=== PATIENT | female | born 1960 | race African-American/Black ===

== ENCOUNTER 2017-08-16 13:10 | Outpatient (CLI) | payer BC | END 2017-08-16 13:11 | disposition home or self-care (01) | LOC: BICMAMMO 13:10 | PROVIDERS: ATTEND Family Medicine | DX: Z12.31 Encounter for screening mammogram for malignant neoplasm of breast (principal); I10 Essential (primary) hypertension | CPT/HCPCS: 77063; 77067 ==

== ENCOUNTER 2018-10-06 20:08 | Inpatient (IN) | payer BC ==
[2018-10-06] MEDS ORDERED: Morphine 4 MG/ML VIAL ONE ×2 (20:22→21:54)
[2018-10-06 21:02] LABS: Lactic Acid 0.9 mmol/L (0.5-2.2)
[2018-10-06] MEDS: Sodium Chloride 0.9% 1,000 ML IV SCH (23:20)
--- NOTE | 2018-10-07 00:20 | HP ---
CHIEF COMPLAINT: Abdominal pain. HISTORY OF PRESENT ILLNESS: This patient is a 57-year-old female who woke up this morning in her usual state of generally good health. She ate breakfast, subsequently had some pelvic and lower abdominal pain, which felt like a cramping and felt like she needed to have bowel movement. She attempted to have a bowel movement, but was unable to do so and the pain became more severe. She denies any fever, but presented to the emergency department in [place]. There, she had a CT scan of the abdomen and pelvis, which revealed evidence of free air in the abdomen and pelvis and some stranding around the sigmoid, consistent with ruptured diverticulum. The patient was subsequently transferred to this facility. She had a temperature of over 102 en route. Currently, the patient is still having some discomfort, but is generally controlled with morphine. REVIEW OF SYSTEMS: All systems reviewed, all pertinent positives and negatives noted in the history of present illness. PAST MEDICAL HISTORY: Hypertension. SURGICAL HISTORY: Hysterectomy. FAMILY HISTORY: Reviewed with the patient and negative. SOCIAL HISTORY: Patient occasionally smokes, but not daily. Occasionally drinks socially, but not regularly. She is a since June. She is full code and her mother is her surrogate decision maker. ALLERGIES: NONE. CURRENT MEDICATIONS: 1. Atenolol 25 mg daily. 2. Hydrochlorothiazide 25 mg daily. PHYSICAL EXAMINATION: VITAL SIGNS: BP 158/80, pulse 87, respirations 16, O2 saturation 98% on room air, temperature is 99.9. GENERAL APPEARANCE: Age-appropriate female, obese, no distress. She is slightly somnolent from the medications, but able to converse appropriately. Her sister is present with her and helps her get some of the history. HEENT: PERRL, no OP lesions. NECK: Supple and symmetric. HEART: Regular rate and rhythm without murmurs, gallops, or rubs. LUNGS: Clear to auscultation bilaterally with good chest wall expansion and air exchange. ABDOMEN: Soft, nondistended. There is bowel sounds in all four quadrants. It is tender to palpation in the left lower abdomen and pelvic area without significant guarding or rebound. EXTREMITIES: No cyanosis, clubbing, or edema. SKIN: Warm and dry. NEUROLOGIC: The patient is fully intact with no focal deficits. PSYCHIATRIC: Normal affect and behavior. LABORATORY DATA: Lactic acid level here is 0. The labs per the [place] ER report reviewed. CT abdomen and pelvis as noted above with free air in the abdomen and pelvis with stranding around the sigmoid colon consistent with a ruptured diverticulum. IMPRESSION AND PLAN: 1. Ruptured diverticulum with abdominal pain and fever. The ER physician discussed the case with surgery who feels like the patient is stable for surgery in the morning. We will cover her with Zosyn, give her pain medications and IV fluids. Keep her n.p.o. 2. Hypertension. We will resume the patient's usual home medications when she is able to take p.o. adequately. 3. We will give peptic ulcer disease and deep venous thrombosis prophylaxis. Job ID: [id number]
[2018-10-07 01:50] VITALS: BMI 36.4
[2018-10-07] MEDS: Morphine 2 MG/ML SYRINGE SLOW IVP PRN ×2 (02:18→06:59)
[2018-10-07 05:08] LABS: Band 5 % (5-11); Eosinophils 2 % (0-10); Hemoglobin 12.7 g/dL (12.0-16.0); Lymphocytes 22 % (21-51); MDiff Complete? YES; Mean Corpuscular HGB CONC 34.2 g/dL (32.0-36.0); Mean Corpuscular Volume 96.6 fL (78.0-98.0); Mean Platelet Volume 8.9 fL (7.4-10.4); Monocytes 6 % (0-10); Neutrophil 65 % (42-75); Platelet Count 141 thou/uL (130-400); Platelet Morphology Comment Appears Adequate; RBC Distribution Width 11.7 % (11.5-14.5); Red Blood Cell (RBC) Count 3.85 mill/uL (4.20-5.40); White Blood Cell (WBC) Count 13.8 thou/uL (4.8-10.8)
[2018-10-07 05:34] LABS: Anion Gap 12 mmol/L (10-20); BUN (Urea Nitrogen) 8 mg/dL (9.8-20.1); Calc. Creatinine Clearance 162 mL/min (70-130); Calcium 8.6 mg/dL (7.8-10.44); Carbon Dioxide 19 mmol/L (22-29); Chloride 111 mmol/L (98-107); Estimated GFR-MDRD Greater than 90; Glucose 97 mg/dL (70-105); Sodium 138 mmol/L (136-145)
[2018-10-07] MEDS: Piperacillin/Tazobactam 3.375 GM in Sodium Chloride 0.9% 100 ML IVPB SCH ×4 (06:00→17:49)
[2018-10-07] MEDS ORDERED: Eucerin (Mineral Oil/Petrolatum,White) 30 gm Jar TOP PRN (08:32)
[2018-10-07] MEDS ORDERED: Acetaminophen 650 MG Suppository PR PRN (08:32)
[2018-10-07] MEDS ORDERED: Sodium Chloride 0.65% Nasal 44 ML BOT EA NARE PRN (08:32)
[2018-10-07] MEDS ORDERED: Artificial Tears 18 DROP/0.9 ML EA EYE PRN (08:32)
[2018-10-07] MEDS ORDERED: Cepastat Lozenges 1 LOZ PO PRN (08:32)
[2018-10-07] MEDS ORDERED: hydrALAZINE 20 MG/ML VIAL SLOW IVP PRN (08:32)
[2018-10-07] MEDS ORDERED: Ondansetron PF 4 MG/2 ML Vial IVP PRN ×2 (08:32→14:10)
[2018-10-07] MEDS ORDERED: Metoclopramide HCl 10 MG/2 ML VIAL IVP PRN (08:32)
[2018-10-07] MEDS ORDERED: Atenolol 25 MG TAB PO SCH (09:00)
[2018-10-07] MEDS ORDERED: Famotidine/PF 20 mg/2ml Vial SLOW IVP SCH (09:00)
--- NOTE | 2018-10-07 09:08 | PDOC.EVN ---
Event Note - Event Note Event Note: Patient seen and examined. She has diffuse peritoneal signs consistent with her perforated sigmoid diverticulitis and free diffuse intraperitoneal air. Plan surgery later today
--- NOTE | 2018-10-07 09:53 | CON ---
DATE OF CONSULTATION: 10/07/2018 CHIEF COMPLAINT: Abdominal pain. HISTORY OF PRESENT ILLNESS: This is a 57-year-old female, who presents with a history of ruptured sigmoid diverticulitis. She notes a few day history of severe diffuse abdominal pain, worse in the low abdomen, associated with fever and chills associated with nausea, no vomiting. She had normal colonoscopy 3 years ago. She denies any chronic heart disease, never had a heart attack or a stroke. Denies diabetes. Pain is described as 8/10 in the diffuse abdomen, makes it feel better by lying on her side and not moving. Nausea, but no vomiting since admission. She has been borderline, febrile since admission. I have been consulted for surgical management of this. PAST MEDICAL HISTORY: Includes hypertension. PAST SURGICAL HISTORY: Hysterectomy. MEDICATIONS: Atenolol, hydrochlorothiazide. ALLERGIES: NO KNOWN DRUG ALLERGIES. SOCIAL HISTORY: She occasionally smokes. Social alcohol. REVIEW OF SYSTEMS: Ten-system review of systems is otherwise negative unless described above. PHYSICAL EXAMINATION: VITAL SIGNS: Blood pressure 179/77, pulse 86, respirations 16, and temperature 100.3. HEENT: Sclerae anicteric. Oropharynx clear. NECK: No lymphadenopathy. CHEST: Clear. HEART: Regular rate and rhythm. ABDOMEN: Soft, diffusely tender with diffuse peritoneal signs and rebound. No abdominal or inguinal hernias. EXTREMITIES: No ischemia or edema to extremities. LABORATORY DATA: White blood cell count is 13, hemoglobin is 12, platelet count is 141. Creatinine 0.66. IMAGING STUDIES: CT scan shows ruptured sigmoid diverticulitis. ASSESSMENT: Ruptured sigmoid diverticulitis. PLAN: Laparotomy with sigmoid resection and colostomy. Risks, benefits, and alternatives were discussed. She gives consent. We will do this today. Job ID: [id number]
[2018-10-07] MEDS: Sodium Chloride 0.9% 1,000 ML IV SCH ×2 (09:55→15:17)
--- NOTE | 2018-10-07 10:38 | PDOC.PN ---
- Subjective Encounter Start Date: 10/07/18 Encounter Start Time: 07:30 -: old records requested/rev Patient seen and examined. has abdominal pain. No overnight events - Objective Resuscitation Status - Order Detail: 10/06/18 22:04 Resuscitation Status Routine Resuscitation Status: FULL: Full Resuscitation MAR Reviewed: Yes Vital Signs & Weight: Vital Signs (12 hours) Temp Pulse Resp BP Pulse Ox 10/07/18 07:38 100.3 F H 86 16 179/77 H 94 L 10/07/18 04:00 98.9 F 77 16 147/87 H 98 10/07/18 00:00 99.0 F 76 16 156/90 H 98 Weight Weight 246 lb 14.684 oz Result Diagrams: 10/07/18 03:57 10/07/18 03:57 Radiology Reviewed by me: Yes EKG Reviewed by me: Yes Phys Exam - Physical Examination Constitutional: NAD HEENT: PERRLA, moist MMs, sclera anicteric Neck: no JVD, supple Respiratory: no wheezing, no rales, no rhonchi Cardiovascular: RRR, no significant murmur, no rub Gastrointestinal: soft, no distention, positive bowel sounds peritoneal sign+ Musculoskeletal: no edema, pulses present Neurological: non-focal, normal sensation, moves all 4 limbs Lymphatic: no nodes Psychiatric: normal affect, A&O x 3 Skin: no rash, normal turgor Dx/Plan (1) Diverticulitis of intestine with perforation Code(s): K57.80 - DVTRCLI OF INTEST, PART UNSP, W PERF AND ABSCESS W/O BLEED Status: Acute Qualifiers: Diverticulitis site: large intestine (2) Hypertension Code(s): I10 - ESSENTIAL (PRIMARY) HYPERTENSION Status: Chronic (3) Obesity (BMI 30.0-34.9) Code(s): E66.9 - OBESITY, UNSPECIFIED Status: Chronic - Plan cont current plan of care, plan discussed w/ family, continue antibiotics * general surgery on case, plan for surgery later today * continue IV antibiotics * continue IVF * medication reviewed as below * symptomatic treatment. * pain control Review of Systems - Review of Systems ENT: negative: Ear Pain, Ear Discharge, Nose Pain, Nose Discharge, Nose Congestion, Mouth Pain, Mouth Swelling, Throat Pain, Throat Swelling, Other Respiratory: negative: Cough, Dry, Shortness of Breath, Hemoptysis, SOB with Excertion, Pleuritic Pain, Sputum, Wheezing Cardiovascular: negative: chest pain, palpitations, orthopnea, paroxysmal nocturnal dyspnea, edema, light headedness, other Gastrointestinal: Abdominal Pain. negative: Nausea, Vomiting, Diarrhea, Constipation, Melena, Hematochezia, Other Genitourinary: negative: Dysuria, Frequency, Incontinence, Hematuria, Retention , Other Musculoskeletal: negative: Neck Pain, Shoulder Pain, Arm Pain, Back Pain, Hand Pain, Leg Pain, Foot Pain, Other Skin: negative: Rash, Lesions, Jabari, Bruising, Other - Medications/Allergies Allergies/Adverse Reactions: Allergies Allergy/AdvReac Type Severity Reaction Status Date / Time No Known Allergies Allergy Unverified 10/06/18 22:12 Medications: Current Medications Acetaminophen (Tylenol) 650 mg MD Q4H PRN PRN Reason: Fever > 101 Artificial Tears (Tears Naturale) 2 drop EA EYE PRN PRN PRN Reason: Dry Eyes Atenolol (Tenormin) 25 mg PO DAILY [facility] Last Admin: 10/07/18 09:55 Dose: 25 mg Famotidine (Pepcid) 20 mg SLOW IVP DAILY [facility] Last Admin: 10/07/18 09:55 Dose: 20 mg Hydralazine HCl (Apresoline) 10 mg SLOW IVP Q4H PRN PRN Reason: SBP > 180 and HR < 70 Piperacillin Sod/Tazobactam (Sod 3.375 gm/ Sodium Chloride) 100 mls @ 200 mls/ hr IVPB Q6HR [facility] Last Admin: 10/07/18 06:00 Dose: 100 mls Sodium Chloride (Normal Saline 0.9%) 1,000 mls @ 100 mls/hr IV .Q10H [facility] Last Admin: 10/07/18 09:55 Dose: 1,000 mls Metoclopramide HCl (Reglan) 5 mg IVP Q4H PRN PRN Reason: Nausea Mineral Oil/White Petrolatum (Eucerin Cream) 0 gm TOP BIDPRN PRN PRN Reason: Dry Skin Morphine Sulfate (Morphine) 2 mg SLOW IVP Q4H PRN PRN Reason: Moderate to Severe Pain (6-10) Last Admin: 10/07/18 06:59 Dose: 2 mg Ondansetron HCl (Zofran) 4 mg IVP Q6H PRN PRN Reason: Nausea/Vomiting Sodium Chloride (Flush - Normal Saline) 10 ml IVF Q12HR [facility] Last Admin: 10/07/18 09:53 Dose: Not Given Sodium Chloride (Flush - Normal Saline) 10 ml IVF PRN PRN PRN Reason: Saline Flush Last Admin: 10/06/18 23:20 Dose: 10 ml Sodium Chloride (Banner Nasal [place] 0.65%) 0 ml EA NARE QIDPRN PRN PRN Reason: Nasal Congestion Throat Lozenges (Cepastat Lozenges) 1 verna PO Q2H PRN PRN Reason: Sore Throat
[2018-10-07] MEDS ORDERED: Morphine 2 MG/ML SYRINGE ONE (11:22)
[2018-10-07] MEDS ORDERED: Succinylcholine Chloride 20 MG/ML 10 ml SYRINGE FS ONE (11:31)
[2018-10-07] MEDS ORDERED: Lidocaine 2% PF 5 ML VIAL ONE (11:31)
[2018-10-07] MEDS ORDERED: Dexamethasone 20 MG/5 ML VIAL ONE (11:31)
[2018-10-07] MEDS ORDERED: PROPOFOL 200 MG/20 ML VIAL ONE (11:31)
[2018-10-07] MEDS ORDERED: Ondansetron PF 4 MG/2 ML Vial ONE (11:31)
[2018-10-07] MEDS ORDERED: Glycopyrrolate 0.2 MG/ML 5 ML SYRINGE ONE (11:31)
[2018-10-07] MEDS ORDERED: PHENYLEPHRINE-NS 100 MCG/ML 10 ML SYRINGE ONE (11:31)
[2018-10-07] MEDS ORDERED: Rocuronium Bromide 10 MG/ML (10ML VIAL) ONE (11:31)
[2018-10-07] MEDS ORDERED: Fentanyl 100 MCG/2 ML VIAL ONE (11:34)
[2018-10-07] MEDS ORDERED: diphenhydrAMINE 50 MG/ML VIAL IM PRN (14:10)
[2018-10-07] MEDS ORDERED: fentaNYL Citrate/PF 2,000 MCG in Sodium Chloride 0.9% 60 ML IV PRN (14:10)
[2018-10-07] MEDS ORDERED: Ondansetron HCl/PF 4 MG/2 ML Vial IVP PRN (14:10)
[2018-10-07] MEDS ORDERED: Promethazine HCl 25 MG/ML VIAL SLOW IVP PRN (14:10)
[2018-10-07] MEDS ORDERED: Zolpidem Tartrate 5 MG TAB PO PRN (14:10)
[2018-10-07] MEDS ORDERED: diphenhydrAMINE 50 MG/ML VIAL IVP PRN (14:10)
[2018-10-07] MEDS ORDERED: Naloxone HCl 0.4 mg/ml Vial IV PRN (14:10)
[2018-10-07] MEDS ORDERED: diphenhydrAMINE 25 MG CAP PO PRN (14:10)
[2018-10-07] MEDS ORDERED: Promethazine HCl 25 MG/ML VIAL IM PRN ×2 (14:10)
[2018-10-07] MEDS ORDERED: Communication Order-Pharmacy FS SCH (14:15)
--- NOTE | 2018-10-07 17:24 | OP ---
DATE OF PROCEDURE: 10/07/2018 PREOPERATIVE DIAGNOSIS: Perforated sigmoid diverticulitis. POSTOPERATIVE DIAGNOSIS: Perforated sigmoid diverticulitis. PROCEDURES PERFORMED: Exploratory laparotomy, sigmoid colectomy with colostomy, and mobilization of splenic flexure. ANESTHESIA: General. ESTIMATED BLOOD LOSS: 50 mL. COMPLICATION: None. SPECIMEN: Sigmoid colon. DESCRIPTION OF PROCEDURE: The patient was taken to the operating room and laid supine on the operating room table. After general anesthetic was obtained, Hess was placed. The abdomen was prepped and draped in a sterile fashion. A midline incision was made into the abdomen without injury. Bookwalter retractor was placed. There was obvious purulent material in the pelvis. There was obvious perforation in the area of the sigmoid colon. The white line of Toldt was mobilized, but the left ureter was found excluded from the dissection. In the upper rectum, a small window was made just on the mesenteric surface of the colon and a contour stapler was fired across the rectosigmoid junction. The mesentery going proximally was taken using the Impact LigaSure. All the way up in the splenic flexure, it was mobilized in the usual fashion using cautery. Ellipse of skin taken out in the left abdomen. Cautery was dissected down through the subcutaneous tissues and a cruciate incision was made in the fascia. Two finger breaths were placed in the abdomen. The proximal colon was able to brought up through this muscle defect, this will be the location of the end colostomy. The Prolene was placed to the staple line below. Seprafilm was placed over the staple line below. The abdomen had been irrigated using sterile solution. All instrument counts, needle counts, and lap counts were correct. Midline fascia closed with #1 PDS from the top and bottom and tied in the middle. Subcutaneous tissues were irrigated copiously and the skin closed using skin clips. Telfa osvaldo were placed in between the christina. Sterile dressings were placed. The colostomy was then matured in the usual fashion using 3-0 Vicryl. Colostomy device was placed. The patient was then returned to Recovery in stable condition. All instrument counts, needle counts, and lap counts were correct. Job ID: [id number]
[2018-10-07] MEDS: Acetaminophen 1,000 MG in Premix Bag 1 BAG IVPB SCH (17:48)
[2018-10-07] MEDS: Enoxaparin Sodium 40 MG/0.4 ML SYRINGE SC SCH (21:02)
[2018-10-07] MEDS: Famotidine 20 MG TAB PO SCH (21:02)
[2018-10-07] MEDS: Famotidine/PF 20 mg/2ml Vial SLOW IVP SCH (21:02)
[2018-10-08] MEDS: Acetaminophen 1,000 MG in Premix Bag 1 BAG IVPB SCH ×3 (00:15→13:10)
[2018-10-08] MEDS: Piperacillin/Tazobactam 3.375 GM in Sodium Chloride 0.9% 100 ML IVPB SCH ×4 (00:48→19:51)
[2018-10-08] MEDS: Sodium Chloride 0.9% 1,000 ML IV SCH ×3 (02:44→13:14)
[2018-10-08 06:18] LABS: #Lymphocytes 1.6 thou/uL (1.20-3.40); #Monocytes 0.8 thou/uL (0.11-0.59); #Neutrophils 9.4 thou/uL (1.40-6.50); %Basophils 0.1 % (0.0-1.0); %Eosinophils 0.3 % (0.0-10.0); %Lymphocytes 13.3 % (21.0-51.0); %Monocytes 6.7 % (0.0-10.0); %Neutrophils 79.7 % (42.0-75.0); Mean Corpuscular HGB CONC 32.7 g/dL (32.0-36.0); Mean Corpuscular Hemoglobin 32.1 pg (27.0-31.0); Mean Corpuscular Volume 98.2 fL (78.0-98.0); Mean Platelet Volume 9.1 fL (7.4-10.4); Platelet Count 132 thou/uL (130-400); RBC Distribution Width 11.5 % (11.5-14.5); Red Blood Cell (RBC) Count 3.43 mill/uL (4.20-5.40); White Blood Cell (WBC) Count 11.8 thou/uL (4.8-10.8)
[2018-10-08 06:29] LABS: ALT (SGPT) 11 U/L (8-55); AST (SGOT) 18 U/L (5-34); Albumin 2.9 g/dL (3.5-5.0); Alkaline Phosphatase 45 U/L (40-150); Anion Gap 12 mmol/L (10-20); BUN (Urea Nitrogen) 8 mg/dL (9.8-20.1); Bilirubin, Total 0.6 mg/dL (0.2-1.2); Calc. Creatinine Clearance 151 mL/min (70-130); Calcium 8.4 mg/dL (7.8-10.44); Carbon Dioxide 20 mmol/L (22-29); Chloride 109 mmol/L (98-107); Estimated GFR-MDRD Greater than 90; Globulin 3.7 g/dL (2.4-3.5); Glucose 102 mg/dL (70-105); Magnesium 2.4 mg/dL (1.6-2.6); Phosphorus 2.4 mg/dL (2.3-4.7); Potassium 4.5 mmol/L (3.5-5.1); Protein, Total 6.6 g/dL (6.0-8.3); Sodium 136 mmol/L (136-145)
--- NOTE | 2018-10-08 08:34 | PDOC.GSPN ---
Surgery Progress Note: Subj - Subjective Narrative: Not ambulating yet. No nausea Surgery Progress Note: Obj - Vital signs Vital signs: Vital Signs - Most Recent Temp Pulse Resp BP Pulse Ox 98.6 F 58 L 16 166/87 H 93 L 10/08/18 08:00 10/08/18 08:00 10/08/18 08:00 10/08/18 08:00 10/08/18 08:00 - Physical Exam General: no distress Cardiovascular: regular rate and rhythm Respiratory: clear to auscultation Abdomen: soft, appropriately tender Wound: dressing clean,dry,intact, ostomy/colostomy (mucosa viable) Surgery Progress Note: Results - Labs Result Diagrams: 10/08/18 05:45 10/08/18 05:45 Lab results: Laboratory Results - last 24 hr 10/08/18 10/08/18 05:45 05:45 WBC 11.8 H RBC 3.43 L Hgb 11.0 L Hct 33.7 L MCV 98.2 H MCH 32.1 H MCHC 32.7 RDW 11.5 Plt Count 132 MPV 9.1 Neutrophils % 79.7 H Lymphocytes % 13.3 L Monocytes % 6.7 Eosinophils % 0.3 Basophils % 0.1 Neutrophils # 9.4 H Lymphocytes # 1.6 Monocytes # 0.8 H Eosinophils # 0.0 Basophils # 0.0 Sodium 136 Potassium 4.5 Chloride 109 H Carbon Dioxide 20 L Anion Gap 12 BUN 8 L Creatinine 0.71 Estimated GFR (MDRD) Greater than 90 Glucose 102 Calcium 8.4 Phosphorus 2.4 Magnesium 2.4 Total Bilirubin 0.6 AST 18 ALT 11 Alkaline Phosphatase 45 Serum Total Protein 6.6 Albumin 2.9 L Globulin 3.7 H Albumin/Globulin Ratio 0.8 L Surgery Progress Note: A/P - Problem (1) Diverticulitis of intestine with perforation Current Visit: Yes Code(s): K57.80 - DVTRCLI OF INTEST, PART UNSP, W PERF AND ABSCESS W/O BLEED Status: Acute Qualifiers: Diverticulitis site: large intestine - Plan Plan: POD 1 root procedure -needs to ambulate -stay on clears -osvaldo out of wound tomorrow
[2018-10-08] MEDS: Famotidine 20 MG TAB PO SCH ×2 (08:58→20:19)
[2018-10-08] MEDS: Famotidine/PF 20 mg/2ml Vial SLOW IVP SCH ×2 (08:59→20:13)
--- NOTE | 2018-10-08 13:41 | PDOC.PN ---
- Subjective Encounter Start Date: 10/08/18 Encounter Start Time: 09:45 -: old records requested/rev Patient seen and examined. No new complaints. No overnight events - Objective Resuscitation Status - Order Detail: 10/06/18 22:04 Resuscitation Status Routine Resuscitation Status: FULL: Full Resuscitation MAR Reviewed: Yes Vital Signs & Weight: Vital Signs (12 hours) Temp Pulse Resp BP Pulse Ox 10/08/18 11:52 98.5 F 59 L 18 169/95 H 93 L 10/08/18 08:00 98.6 F 58 L 16 166/87 H 93 L 10/08/18 04:00 98 F 66 18 149/80 H 94 L Weight Weight 246 lb 14.684 oz I&O: 10/07/18 10/08/18 10/09/18 06:59 06:59 06:59 Intake Total 800 Output Total 350 200 Balance 450 -200 Result Diagrams: 10/08/18 05:45 10/08/18 05:45 Additional Labs: Accuchecks 10/07/18 13:40 POC Glucose 121 H Phys Exam - Physical Examination Constitutional: NAD HEENT: PERRLA, moist MMs, sclera anicteric Neck: no JVD, supple Respiratory: no wheezing, no rales, no rhonchi Cardiovascular: RRR, no significant murmur, no rub Gastrointestinal: soft surgical site with dressing, colostomy+ Musculoskeletal: no edema, pulses present Neurological: non-focal, normal sensation Lymphatic: no nodes Psychiatric: normal affect, A&O x 3 Skin: no rash, normal turgor Dx/Plan (1) Diverticulitis of intestine with perforation Code(s): K57.80 - DVTRCLI OF INTEST, PART UNSP, W PERF AND ABSCESS W/O BLEED Status: Acute Qualifiers: Diverticulitis site: large intestine Comment: S/P LAPAROTOMY, SIGMOID COLON RESECTION, AND COLOSTOMY PLACEMENT (2) Hypertension Code(s): I10 - ESSENTIAL (PRIMARY) HYPERTENSION Status: Chronic (3) Obesity (BMI 30.0-34.9) Code(s): E66.9 - OBESITY, UNSPECIFIED Status: Chronic - Plan cont current plan of care, continue antibiotics * continue zosyn * reduce IVF * ambulate * post operative care as per surgeon * medication reviewed as below * symptomatic treatment. * clear liquid diet Review of Systems - Review of Systems ENT: negative: Ear Pain, Ear Discharge, Nose Pain, Nose Discharge, Nose Congestion, Mouth Pain, Mouth Swelling, Throat Pain, Throat Swelling, Other Respiratory: negative: Cough, Dry, Shortness of Breath, Hemoptysis, SOB with Excertion, Pleuritic Pain, Sputum, Wheezing Cardiovascular: negative: chest pain, palpitations, orthopnea, paroxysmal nocturnal dyspnea, edema, light headedness, other Gastrointestinal: negative: Nausea, Vomiting, Abdominal Pain, Diarrhea, Constipation, Melena, Hematochezia, Other Genitourinary: negative: Dysuria, Frequency, Incontinence, Hematuria, Retention , Other Musculoskeletal: negative: Neck Pain, Shoulder Pain, Arm Pain, Back Pain, Hand Pain, Leg Pain, Foot Pain, Other - Medications/Allergies Allergies/Adverse Reactions: Allergies Allergy/AdvReac Type Severity Reaction Status Date / Time No Known Allergies Allergy Unverified 10/06/18 22:12 Medications: Current Medications Albuterol/Ipratropium (Duoneb) 3 ml NEB Q4H PRN PRN Reason: Wheezing Diphenhydramine HCl (Benadryl) 25 mg IVP Q3H PRN PRN Reason: Itching Diphenhydramine HCl (Benadryl) 25 mg PO Q3H PRN PRN Reason: Itching Diphenhydramine HCl (Benadryl) 25 mg IM Q3H PRN PRN Reason: Itching Enoxaparin Sodium (Lovenox) 40 mg SC 2100 [facility] Last Admin: 10/07/18 21:02 Dose: 40 mg Famotidine (Pepcid) 20 mg PO Q12HR [facility] Last Admin: 10/08/18 08:58 Dose: Not Given Famotidine (Pepcid) 20 mg SLOW IVP Q12HR [facility] Last Admin: 10/08/18 08:59 Dose: 20 mg Hydralazine HCl (Apresoline) 10 mg SLOW IVP Q4H PRN PRN Reason: SBP > 170 or DBP > 100 Piperacillin Sod/Tazobactam (Sod 3.375 gm/ Sodium Chloride) 100 mls @ 200 mls/ hr IVPB Q6HR [facility] Last Admin: 10/08/18 13:10 Dose: 100 mls Fentanyl Citrate 2,000 mcg/ (Sodium Chloride) 100 mls @ 0 mls/hr IV INF PRN PRN Reason: Pain Sodium Chloride (Normal Saline 0.9%) 1,000 mls @ 70 mls/hr IV .[id number] [facility] Last Admin: 10/08/18 13:14 Dose: 1,000 mls Naloxone HCl (Narcan) 0.2 mg IV Q5MIN PRN PRN Reason: Opiate Reversal Ondansetron HCl (Zofran) 4 mg IVP Q6H PRN PRN Reason: Nausea/Vomiting Promethazine HCl (Phenergan) 12.5 mg IM Q4H PRN PRN Reason: Nausea/Vomiting Sodium Chloride (Flush - Normal Saline) 10 ml IVF PRN PRN PRN Reason: Saline Flush Last Admin: 10/07/18 21:04 Dose: 10 ml Throat Lozenges (Cepastat Lozenges) 1 verna PO Q2H PRN PRN Reason: Sore Throat Zolpidem Tartrate (Ambien) 5 mg PO HSPRN PRN PRN Reason: Insomnia
[2018-10-08] MEDS: Ondansetron PF 4 MG/2 ML Vial IVP PRN (19:51)
[2018-10-08] MEDS: Enoxaparin Sodium 40 MG/0.4 ML SYRINGE SC SCH (20:13)
[2018-10-09] MEDS: Piperacillin/Tazobactam 3.375 GM in Sodium Chloride 0.9% 100 ML IVPB SCH ×5 (00:27→23:33)
[2018-10-09] MEDS: hydrALAZINE 20 MG/ML VIAL SLOW IVP PRN ×4 (01:01→14:05)
[2018-10-09] MEDS: Ondansetron PF 4 MG/2 ML Vial IVP PRN ×2 (02:29→10:42)
[2018-10-09] MEDS: Promethazine HCl 25 MG/ML VIAL IM PRN ×2 (04:25→14:09)
[2018-10-09] MEDS: Sodium Chloride 0.9% 1,000 ML IV SCH ×2 (04:29→13:00)
[2018-10-09] MEDS ORDERED: Labetalol HCl 100 MG/20 ML VIAL SLOW IVP PRN (08:18)
[2018-10-09] MEDS ORDERED: Labetalol 5 MG/ML SYRINGE (IV ROOM) SLOW IVP PRN (08:32)
[2018-10-09] MEDS: Labetalol 5 MG/ML SYRINGE (IV ROOM) SLOW IVP PRN ×2 (09:01→16:06)
[2018-10-09] MEDS: Famotidine/PF 20 mg/2ml Vial SLOW IVP SCH ×2 (09:01→20:34)
[2018-10-09] MEDS: Famotidine 20 MG TAB PO SCH ×2 (09:01→20:34)
--- NOTE | 2018-10-09 10:16 | PDOC.GSPN ---
Surgery Progress Note: Subj - Subjective Narrative: Ambulated three times yesterday, c/o nausea and bloating Surgery Progress Note: Obj - Vital signs Vital signs: Vital Signs - Most Recent Temp Pulse Resp BP Pulse Ox 100.0 F H 83 20 191/119 H 91 L 10/09/18 08:06 10/09/18 08:06 10/09/18 08:06 10/09/18 08:06 10/09/18 08:06 - Physical Exam General: no distress Abdomen: soft, appropriately tender Wound: other (Dressing removed. Brennan removed. Dressings replaced. Colostomy mucosa pink, no stoo or air yet) Surgery Progress Note: Results - Labs Result Diagrams: 10/08/18 05:45 10/08/18 05:45 Surgery Progress Note: A/P - Problem (1) Diverticulitis of intestine with perforation Current Visit: Yes Code(s): K57.80 - DVTRCLI OF INTEST, PART UNSP, W PERF AND ABSCESS W/O BLEED Status: Acute Qualifiers: Diverticulitis site: large intestine - Plan Plan: POD 2 -expected postop ileus -continued to encourage more activity -stay on clears until more bowel function
--- NOTE | 2018-10-09 14:18 | PDOC.PN ---
- Subjective Encounter Start Date: 10/09/18 Encounter Start Time: 08:30 this morning pt is not feeling good, has belching, nausea - Objective Resuscitation Status - Order Detail: 10/06/18 22:04 Resuscitation Status Routine Resuscitation Status: FULL: Full Resuscitation MAR Reviewed: Yes Vital Signs & Weight: Vital Signs (12 hours) Temp Pulse Resp BP BP Pulse Ox 10/09/18 14:05 96 173/83 H 10/09/18 11:56 100.1 F H 85 20 169/92 H 94 L 10/09/18 11:45 82 144/82 H 10/09/18 10:42 80 172/93 H 10/09/18 10:33 80 172/93 H 10/09/18 08:55 94 L 10/09/18 08:06 100.0 F H 83 20 191/119 H 91 L 10/09/18 06:10 76 189/94 H 10/09/18 04:00 98.2 F 90 18 189/94 H 92 L Weight Weight 246 lb 14.684 oz I&O: 10/08/18 10/09/18 10/10/18 06:59 06:59 06:59 Intake Total 800 1960 Output Total 350 600 Balance 450 1360 Result Diagrams: 10/08/18 05:45 10/08/18 05:45 Phys Exam - Physical Examination Constitutional: NAD HEENT: PERRLA, moist MMs, sclera anicteric Neck: no JVD, supple Respiratory: no wheezing, no rales, no rhonchi Cardiovascular: RRR, no significant murmur, no rub Gastrointestinal: soft, no distention colostomy+, surgical site with dressing Musculoskeletal: no edema, pulses present Neurological: non-focal, normal sensation Lymphatic: no nodes Psychiatric: normal affect, A&O x 3 Skin: no rash, normal turgor Dx/Plan (1) Diverticulitis of intestine with perforation Code(s): K57.80 - DVTRCLI OF INTEST, PART UNSP, W PERF AND ABSCESS W/O BLEED Status: Acute Qualifiers: Diverticulitis site: large intestine Comment: S/P LAPAROTOMY, SIGMOID COLON RESECTION, AND COLOSTOMY PLACEMENT (2) Hypertension Code(s): I10 - ESSENTIAL (PRIMARY) HYPERTENSION Status: Chronic (3) Obesity (BMI 30.0-34.9) Code(s): E66.9 - OBESITY, UNSPECIFIED Status: Chronic (4) Postoperative ileus Code(s): K91.89 - OTH POSTPROCEDURAL COMPLICATIONS AND DISORDERS OF DGSTV SYS; K56.7 - ILEUS, UNSPECIFIED Status: Acute - Plan cont current plan of care, PT/OT * medication reviewed as below * symptomatic treatment * continue clear liquid for now * supportive care * ? may need rehab. Review of Systems - Review of Systems ENT: negative: Ear Pain, Ear Discharge, Nose Pain, Nose Discharge, Nose Congestion, Mouth Pain, Mouth Swelling, Throat Pain, Throat Swelling, Other Respiratory: negative: Cough, Dry, Shortness of Breath, Hemoptysis, SOB with Excertion, Pleuritic Pain, Sputum, Wheezing Cardiovascular: negative: chest pain, palpitations, orthopnea, paroxysmal nocturnal dyspnea, edema, light headedness, other Gastrointestinal: negative: Nausea, Vomiting, Abdominal Pain, Diarrhea, Constipation, Melena, Hematochezia, Other Genitourinary: negative: Dysuria, Frequency, Incontinence, Hematuria, Retention , Other Musculoskeletal: negative: Neck Pain, Shoulder Pain, Arm Pain, Back Pain, Hand Pain, Leg Pain, Foot Pain, Other - Medications/Allergies Allergies/Adverse Reactions: Allergies Allergy/AdvReac Type Severity Reaction Status Date / Time No Known Allergies Allergy Unverified 10/06/18 22:12 Medications: Current Medications Albuterol/Ipratropium (Duoneb) 3 ml NEB Q4H PRN PRN Reason: Wheezing Diphenhydramine HCl (Benadryl) 25 mg IVP Q3H PRN PRN Reason: Itching Diphenhydramine HCl (Benadryl) 25 mg PO Q3H PRN PRN Reason: Itching Diphenhydramine HCl (Benadryl) 25 mg IM Q3H PRN PRN Reason: Itching Enoxaparin Sodium (Lovenox) 40 mg SC 2100 [facility] Last Admin: 10/08/18 20:13 Dose: 40 mg Famotidine (Pepcid) 20 mg PO Q12HR [facility] Last Admin: 10/09/18 09:01 Dose: Not Given Famotidine (Pepcid) 20 mg SLOW IVP Q12HR [facility] Last Admin: 10/09/18 09:01 Dose: 20 mg Hydralazine HCl (Apresoline) 10 mg SLOW IVP Q4H PRN PRN Reason: SBP > 170 or DBP > 100 Last Admin: 10/09/18 14:05 Dose: 10 mg Piperacillin Sod/Tazobactam (Sod 3.375 gm/ Sodium Chloride) 100 mls @ 200 mls/ hr IVPB Q6HR [facility] Last Admin: 10/09/18 11:44 Dose: 100 mls Fentanyl Citrate 2,000 mcg/ (Sodium Chloride) 100 mls @ 0 mls/hr IV INF PRN PRN Reason: Pain Sodium Chloride (Normal Saline 0.9%) 1,000 mls @ 70 mls/hr IV .[id number] [facility] Last Admin: 10/09/18 13:00 Dose: Not Given Labetalol HCl (Normodyne) 20 mg SLOW IVP Q2H PRN PRN Reason: SBP GREATER THAN 160 Last Admin: 10/09/18 09:01 Dose: 20 mg Naloxone HCl (Narcan) 0.2 mg IV Q5MIN PRN PRN Reason: Opiate Reversal Ondansetron HCl (Zofran) 4 mg IVP Q6H PRN PRN Reason: Nausea/Vomiting Last Admin: 10/09/18 10:42 Dose: 4 mg Promethazine HCl (Phenergan) 12.5 mg IM Q4H PRN PRN Reason: Nausea/Vomiting Last Admin: 10/09/18 14:09 Dose: 12.5 mg Sodium Chloride (Flush - Normal Saline) 10 ml IVF PRN PRN PRN Reason: Saline Flush Last Admin: 10/09/18 02:32 Dose: 10 ml Throat Lozenges (Cepastat Lozenges) 1 verna PO Q2H PRN PRN Reason: Sore Throat Zolpidem Tartrate (Ambien) 5 mg PO HSPRN PRN PRN Reason: Insomnia
[2018-10-09] MEDS: Enoxaparin Sodium 40 MG/0.4 ML SYRINGE SC SCH (20:34)
[2018-10-10] MEDS: hydrALAZINE 20 MG/ML VIAL SLOW IVP PRN ×2 (03:35→17:59)
[2018-10-10] MEDS: Sodium Chloride 0.9% 1,000 ML IV SCH ×2 (03:36→09:10)
[2018-10-10] MEDS: Ondansetron PF 4 MG/2 ML Vial IVP PRN ×2 (05:13→18:04)
[2018-10-10] MEDS: Piperacillin/Tazobactam 3.375 GM in Sodium Chloride 0.9% 100 ML IVPB SCH ×4 (05:13→23:42)
[2018-10-10] MEDS ORDERED: Eucerin (Mineral Oil/Petrolatum,White) 30 gm Jar TOP PRN (08:02)
[2018-10-10] MEDS ORDERED: Artificial Tears 18 DROP/0.9 ML EA EYE PRN (08:02)
[2018-10-10] MEDS ORDERED: Senokot S 8.6-50 MG TAB PO PRN (08:02)
[2018-10-10] MEDS ORDERED: Sodium Chloride 0.65% Nasal 44 ML BOT EA NARE PRN (08:02)
[2018-10-10] MEDS ORDERED: Acetaminophen 500 MG TAB PO PRN (08:02)
[2018-10-10] MEDS ORDERED: Ondansetron ODT 4 MG TAB PO PRN (08:02)
[2018-10-10] MEDS ORDERED: HYDROcodone/Acetaminophen 5/325 mg Tablet PO PRN (08:02)
[2018-10-10] MEDS ORDERED: Diabetic Tussin 200 MG/10 ML UDCUP PO PRN (08:02)
[2018-10-10] MEDS ORDERED: Acetaminophen 325 MG TAB PO PRN (08:08)
[2018-10-10 08:43] LABS: #Eosinphils 0.1 thou/uL (0.0-0.7); #Lymphocytes 1.7 thou/uL (1.20-3.40); #Monocytes 0.7 thou/uL (0.11-0.59); #Neutrophils 4.7 thou/uL (1.40-6.50); %Basophils 0.1 % (0.0-1.0); %Eosinophils 0.9 % (0.0-10.0); %Lymphocytes 23.4 % (21.0-51.0); %Monocytes 9.5 % (0.0-10.0); %Neutrophils 66.1 % (42.0-75.0); Mean Corpuscular HGB CONC 32.8 g/dL (32.0-36.0); Mean Corpuscular Hemoglobin 31.7 pg (27.0-31.0); Mean Corpuscular Volume 96.6 fL (78.0-98.0); Mean Platelet Volume 8.2 fL (7.4-10.4); Platelet Count 184 thou/uL (130-400); RBC Distribution Width 11.6 % (11.5-14.5); Red Blood Cell (RBC) Count 3.49 mill/uL (4.20-5.40); White Blood Cell (WBC) Count 7.1 thou/uL (4.8-10.8)
[2018-10-10 08:59] LABS: Anion Gap 12 mmol/L (10-20); BUN (Urea Nitrogen) 6 mg/dL (9.8-20.1); Calc. Creatinine Clearance 179 mL/min (70-130); Calcium 8.5 mg/dL (7.8-10.44); Carbon Dioxide 21 mmol/L (22-29); Chloride 109 mmol/L (98-107); Estimated GFR-MDRD Greater than 90; Glucose 96 mg/dL (70-105); Magnesium 1.9 mg/dL (1.6-2.6); Phosphorus 2.8 mg/dL (2.3-4.7); Potassium 3.5 mmol/L (3.5-5.1); Sodium 138 mmol/L (136-145)
[2018-10-10] MEDS: Famotidine/PF 20 mg/2ml Vial SLOW IVP SCH ×2 (09:10→20:31)
[2018-10-10] MEDS: Famotidine 20 MG TAB PO SCH ×2 (09:10→20:32)
[2018-10-10] MEDS: Labetalol 5 MG/ML SYRINGE (IV ROOM) SLOW IVP PRN (09:49)
--- NOTE | 2018-10-10 10:14 | PDOC.PN ---
- Subjective Encounter Start Date: 10/10/18 Encounter Start Time: 08:10 Patient seen and examined. No new complaints. No overnight events pt has belching - Objective Resuscitation Status - Order Detail: 10/06/18 22:04 Resuscitation Status Routine Resuscitation Status: FULL: Full Resuscitation MAR Reviewed: Yes Vital Signs & Weight: Vital Signs (12 hours) Temp Pulse Resp BP BP Pulse Ox 10/10/18 09:13 99.7 F H 81 16 175/91 H 100 10/10/18 05:05 78 158/93 H 10/10/18 04:15 99.6 F 81 18 175/97 H 94 L 10/10/18 03:35 85 175/97 H 10/10/18 00:43 154/83 H 10/10/18 00:22 99.6 F 86 20 162/94 H 94 L Weight Weight 246 lb 14.684 oz I&O: 10/09/18 10/10/18 10/11/18 06:59 06:59 06:59 Intake Total 1960 1910 Output Total 600 1150 Balance 1360 760 Result Diagrams: 10/10/18 08:32 10/10/18 08:32 Phys Exam - Physical Examination Constitutional: NAD HEENT: PERRLA, moist MMs, sclera anicteric Neck: no JVD, supple Respiratory: no wheezing, no rales, no rhonchi Cardiovascular: RRR, no significant murmur, no rub Gastrointestinal: soft, no distention colostomy+, surgical site with dressing Musculoskeletal: no edema, pulses present Neurological: non-focal, normal sensation, moves all 4 limbs Lymphatic: no nodes Psychiatric: normal affect, A&O x 3 Skin: no rash, normal turgor Dx/Plan (1) Diverticulitis of intestine with perforation Code(s): K57.80 - DVTRCLI OF INTEST, PART UNSP, W PERF AND ABSCESS W/O BLEED Status: Acute Qualifiers: Diverticulitis site: large intestine Comment: S/P LAPAROTOMY, SIGMOID COLON RESECTION, AND COLOSTOMY PLACEMENT (2) Hypertension Code(s): I10 - ESSENTIAL (PRIMARY) HYPERTENSION Status: Chronic (3) Obesity (BMI 30.0-34.9) Code(s): E66.9 - OBESITY, UNSPECIFIED Status: Chronic (4) Postoperative ileus Code(s): K91.89 - OTH POSTPROCEDURAL COMPLICATIONS AND DISORDERS OF DGSTV SYS; K56.7 - ILEUS, UNSPECIFIED Status: Acute - Plan cont current plan of care, continue antibiotics, PT/OT, out of bed/ambulate * continue zosyn * pt will need rehab on discharge * medication reviewed as below * symptomatic treatment * diet advancement as per surgeon * continue zosyn * continue IVF Review of Systems - Review of Systems ENT: negative: Ear Pain, Ear Discharge, Nose Pain, Nose Discharge, Nose Congestion, Mouth Pain, Mouth Swelling, Throat Pain, Throat Swelling, Other Respiratory: negative: Cough, Dry, Shortness of Breath, Hemoptysis, SOB with Excertion, Pleuritic Pain, Sputum, Wheezing Cardiovascular: negative: chest pain, palpitations, orthopnea, paroxysmal nocturnal dyspnea, edema, light headedness, other Gastrointestinal: negative: Nausea, Vomiting, Abdominal Pain, Diarrhea, Constipation, Melena, Hematochezia, Other Genitourinary: negative: Dysuria, Frequency, Incontinence, Hematuria, Retention , Other Musculoskeletal: negative: Neck Pain, Shoulder Pain, Arm Pain, Back Pain, Hand Pain, Leg Pain, Foot Pain, Other - Medications/Allergies Allergies/Adverse Reactions: Allergies Allergy/AdvReac Type Severity Reaction Status Date / Time No Known Allergies Allergy Unverified 10/06/18 22:12 Medications: Current Medications Acetaminophen (Tylenol) 650 mg PO Q6H PRN PRN Reason: Mild Pain (1-3) Hydrocodone Bitart/Acetaminophen ([place] 5/325) 1 tab PO Q4H PRN PRN Reason: Moderate Pain (4-6) Albuterol/Ipratropium (Duoneb) 3 ml NEB Q4H PRN PRN Reason: Wheezing Artificial Tears (Tears Naturale) 2 drop EA EYE PRN PRN PRN Reason: Dry Eyes Diphenhydramine HCl (Benadryl) 25 mg IVP Q3H PRN PRN Reason: Itching Diphenhydramine HCl (Benadryl) 25 mg PO Q3H PRN PRN Reason: Itching Diphenhydramine HCl (Benadryl) 25 mg IM Q3H PRN PRN Reason: Itching Enoxaparin Sodium (Lovenox) 40 mg SC 2100 [facility] Last Admin: 10/09/18 20:34 Dose: 40 mg Famotidine (Pepcid) 20 mg PO Q12HR [facility] Last Admin: 10/10/18 09:10 Dose: Not Given Famotidine (Pepcid) 20 mg SLOW IVP Q12HR [facility] Last Admin: 10/10/18 09:10 Dose: 20 mg Guaifenesin (Robitussin Sf) 200 mg PO Q4H PRN PRN Reason: Cough Hydralazine HCl (Apresoline) 10 mg SLOW IVP Q4H PRN PRN Reason: SBP > 170 or DBP > 100 Last Admin: 10/10/18 03:35 Dose: 10 mg Piperacillin Sod/Tazobactam (Sod 3.375 gm/ Sodium Chloride) 100 mls @ 200 mls/ hr IVPB Q6HR [facility] Last Admin: 10/10/18 05:13 Dose: 100 mls Fentanyl Citrate 2,000 mcg/ (Sodium Chloride) 100 mls @ 0 mls/hr IV INF PRN PRN Reason: Pain Last Admin: 10/10/18 07:56 Dose: 100 mls Sodium Chloride (Normal Saline 0.9%) 1,000 mls @ 70 mls/hr IV .[id number] [facility] Last Admin: 10/10/18 09:10 Dose: 1,000 mls Labetalol HCl (Normodyne) 20 mg SLOW IVP Q2H PRN PRN Reason: SBP GREATER THAN 160 Last Admin: 10/10/18 09:49 Dose: 20 mg Mineral Oil/White Petrolatum (Eucerin Cream) 0 gm TOP BIDPRN PRN PRN Reason: Dry Skin Naloxone HCl (Narcan) 0.2 mg IV Q5MIN PRN PRN Reason: Opiate Reversal Ondansetron HCl (Zofran) 4 mg IVP Q6H PRN PRN Reason: Nausea/Vomiting Last Admin: 10/10/18 05:13 Dose: 4 mg Ondansetron HCl (Zofran Odt) 4 mg PO Q6H PRN PRN Reason: Nausea/Vomiting Promethazine HCl (Phenergan) 12.5 mg IM Q4H PRN PRN Reason: Nausea/Vomiting Last Admin: 10/09/18 14:09 Dose: 12.5 mg Senna/Docusate Sodium (Senokot S) 2 tab PO BID PRN PRN Reason: Constipation Sodium Chloride (Flush - Normal Saline) 10 ml IVF PRN PRN PRN Reason: Saline Flush Last Admin: 10/09/18 02:32 Dose: 10 ml Sodium Chloride ([place] Nasal [place] 0.65%) 0 ml EA NARE QIDPRN PRN PRN Reason: Nasal Congestion Throat Lozenges (Cepastat Lozenges) 1 verna PO Q2H PRN PRN Reason: Sore Throat Zolpidem Tartrate (Ambien) 5 mg PO HSPRN PRN PRN Reason: Insomnia
--- NOTE | 2018-10-10 14:18 | PDOC.GSPN ---
Surgery Progress Note: Subj - Subjective Patient reports: tolerating liquids well (Nausea improved) Surgery Progress Note: Obj - Vital signs Vital signs: Vital Signs - Most Recent Temp Pulse Resp BP Pulse Ox 99.7 F H 81 16 175/91 H 100 10/10/18 09:13 10/10/18 09:13 10/10/18 09:13 10/10/18 09:13 10/10/18 09:13 - Physical Exam General: no distress Respiratory: clear to auscultation Abdomen: soft, nondistended, appropriately tender Wound: dressing clean,dry,intact Surgery Progress Note: Results - Labs Result Diagrams: 10/10/18 08:32 10/10/18 08:32 Lab results: Laboratory Results - last 24 hr 10/10/18 10/10/18 08:32 08:32 WBC 7.1 RBC 3.49 L Hgb 11.0 L Hct 33.7 L MCV 96.6 MCH 31.7 H MCHC 32.8 RDW 11.6 Plt Count 184 MPV 8.2 Neutrophils % 66.1 Lymphocytes % 23.4 Monocytes % 9.5 Eosinophils % 0.9 Basophils % 0.1 Neutrophils # 4.7 Lymphocytes # 1.7 Monocytes # 0.7 H Eosinophils # 0.1 Basophils # 0.0 Sodium 138 Potassium 3.5 Chloride 109 H Carbon Dioxide 21 L Anion Gap 12 BUN 6 L Creatinine 0.60 Estimated GFR (MDRD) Greater than 90 Glucose 96 Calcium 8.5 Phosphorus 2.8 Magnesium 1.9 Surgery Progress Note: A/P - Problem (1) Diverticulitis of intestine with perforation Current Visit: Yes Code(s): K57.80 - DVTRCLI OF INTEST, PART UNSP, W PERF AND ABSCESS W/O BLEED Status: Acute Qualifiers: Diverticulitis site: large intestine - Plan Plan: Still not very active -Clear liquids until more bowel function in colostomy -suspect will be ready for [facility] on Sunday
[2018-10-10] MEDS: Enoxaparin Sodium 40 MG/0.4 ML SYRINGE SC SCH (20:31)
[2018-10-10] MEDS: Promethazine HCl 25 MG/ML VIAL IM PRN (20:41)
[2018-10-11] MEDS: Labetalol 5 MG/ML SYRINGE (IV ROOM) SLOW IVP PRN ×2 (00:06→05:23)
[2018-10-11] MEDS: Piperacillin/Tazobactam 3.375 GM in Sodium Chloride 0.9% 100 ML IVPB SCH ×4 (05:23→23:26)
[2018-10-11] MEDS ORDERED: Milk Of Magnesia 30 ML UDCUP PO ONE (08:26)
[2018-10-11] MEDS ORDERED: HYDROcodone/Acetaminophen 7.5/325 mg Tablet PO PRN (08:27)
[2018-10-11] MEDS ORDERED: traMADol HCl 50 MG TAB PO PRN ×2 (08:27)
--- NOTE | 2018-10-11 08:29 | PDOC.GSPN ---
Surgery Progress Note: Subj - Subjective Patient reports: no new complaints, feels better, tolerating liquids well Surgery Progress Note: Obj - Vital signs Vital signs: Vital Signs - Most Recent Temp Pulse Resp BP Pulse Ox 99.5 F 81 20 165/95 H 92 L 10/11/18 04:33 10/11/18 04:33 10/11/18 04:33 10/11/18 04:10/11/18 04:33 - Physical Exam General: no distress Cardiovascular: regular rate and rhythm Respiratory: clear to auscultation Abdomen: soft, appropriately tender Wound: healing well Surgery Progress Note: Results - Labs Result Diagrams: 10/10/18 08:32 10/10/18 08:32 Surgery Progress Note: A/P - Problem (1) Diverticulitis of intestine with perforation Current Visit: Yes Code(s): K57.80 - DVTRCLI OF INTEST, PART UNSP, W PERF AND ABSCESS W/O BLEED Status: Acute Qualifiers: Diverticulitis site: large intestine - Plan Plan: POD 4 colectomy/colostomy -advance to full liquids, ileus resolving -dc activities specialist, oral pain control -correction approval pending
[2018-10-11] MEDS: hydrALAZINE 20 MG/ML VIAL SLOW IVP PRN ×2 (08:46→17:31)
[2018-10-11] MEDS: Famotidine/PF 20 mg/2ml Vial SLOW IVP SCH ×2 (08:47→20:30)
[2018-10-11] MEDS: Famotidine 20 MG TAB PO SCH ×2 (08:48→20:30)
[2018-10-11] MEDS: Sodium Chloride 0.9% 1,000 ML IV SCH (09:04)
--- NOTE | 2018-10-11 10:33 | PDOC.PN ---
- Subjective Encounter Start Date: 10/11/18 Encounter Start Time: 09:00 Patient seen and examined. No new complaints. No overnight events - Objective Resuscitation Status - Order Detail: 10/06/18 22:04 Resuscitation Status Routine Resuscitation Status: FULL: Full Resuscitation MAR Reviewed: Yes Vital Signs & Weight: Vital Signs (12 hours) Temp Pulse Resp BP BP Pulse Ox 10/11/18 08:46 82 175/89 H 10/11/18 07:40 99.7 F H 82 14 175/89 H 91 L 10/11/18 04:33 99.5 F 81 20 165/95 H 92 L 10/11/18 01:33 86 160/86 H 10/11/18 00:45 99.2 F 84 20 162/83 H 93 L Weight Weight 246 lb 14.684 oz I&O: 10/10/18 10/11/18 10/12/18 06:59 06:59 06:59 Intake Total 1910 1200 Output Total 1150 700 Balance 760 500 Result Diagrams: 10/10/18 08:32 10/10/18 08:32 Phys Exam - Physical Examination Constitutional: NAD HEENT: PERRLA, moist MMs, sclera anicteric Neck: no JVD, supple Respiratory: no wheezing, no rales, no rhonchi Cardiovascular: RRR, no significant murmur, no rub Gastrointestinal: soft, non-tender, no distention, positive bowel sounds colostomy+, surgical site with dressing Musculoskeletal: no edema, pulses present Neurological: non-focal, normal sensation Lymphatic: no nodes Psychiatric: normal affect, A&O x 3 Skin: no rash, normal turgor Dx/Plan (1) Diverticulitis of intestine with perforation Code(s): K57.80 - DVTRCLI OF INTEST, PART UNSP, W PERF AND ABSCESS W/O BLEED Status: Acute Qualifiers: Diverticulitis site: large intestine Comment: S/P LAPAROTOMY, SIGMOID COLON RESECTION, AND COLOSTOMY PLACEMENT (2) Hypertension Code(s): I10 - ESSENTIAL (PRIMARY) HYPERTENSION Status: Chronic (3) Obesity (BMI 30.0-34.9) Code(s): E66.9 - OBESITY, UNSPECIFIED Status: Chronic (4) Postoperative ileus Code(s): K91.89 - OTH POSTPROCEDURAL COMPLICATIONS AND DISORDERS OF DGSTV SYS; K56.7 - ILEUS, UNSPECIFIED Status: Acute - Plan cont current plan of care, continue antibiotics, PT/OT, social science teacher, out of bed/ambulate * continue zosyn * today flull liquid diet * will need placement * medication reviewed as below * symptomatic treatment * pain controlled. Review of Systems - Review of Systems ENT: negative: Ear Pain, Ear Discharge, Nose Pain, Nose Discharge, Nose Congestion, Mouth Pain, Mouth Swelling, Throat Pain, Throat Swelling, Other Respiratory: negative: Cough, Dry, Shortness of Breath, Hemoptysis, SOB with Excertion, Pleuritic Pain, Sputum, Wheezing Cardiovascular: negative: chest pain, palpitations, orthopnea, paroxysmal nocturnal dyspnea, edema, light headedness, other Gastrointestinal: negative: Nausea, Vomiting, Abdominal Pain, Diarrhea, Constipation, Melena, Hematochezia, Other Genitourinary: negative: Dysuria, Frequency, Incontinence, Hematuria, Retention , Other Musculoskeletal: negative: Neck Pain, Shoulder Pain, Arm Pain, Back Pain, Hand Pain, Leg Pain, Foot Pain, Other - Medications/Allergies Allergies/Adverse Reactions: Allergies Allergy/AdvReac Type Severity Reaction Status Date / Time No Known Allergies Allergy Unverified 10/06/18 22:12 Medications: Current Medications Acetaminophen (Tylenol) 650 mg PO Q6H PRN PRN Reason: Mild Pain (1-3) Hydrocodone Bitart/Acetaminophen ([place] 7.5/325) 1 tab PO Q6H PRN PRN Reason: Mild Pain (1-3) Albuterol/Ipratropium (Duoneb) 3 ml NEB Q4H PRN PRN Reason: Wheezing Artificial Tears (Tears Naturale) 2 drop EA EYE PRN PRN PRN Reason: Dry Eyes Diphenhydramine HCl (Benadryl) 25 mg IVP Q3H PRN PRN Reason: Itching Diphenhydramine HCl (Benadryl) 25 mg PO Q3H PRN PRN Reason: Itching Diphenhydramine HCl (Benadryl) 25 mg IM Q3H PRN PRN Reason: Itching Enoxaparin Sodium (Lovenox) 40 mg SC 2100 [facility] Last Admin: 10/10/18 20:31 Dose: 40 mg Famotidine (Pepcid) 20 mg PO Q12HR [facility] Last Admin: 10/11/18 08:48 Dose: Not Given Famotidine (Pepcid) 20 mg SLOW IVP Q12HR [facility] Last Admin: 10/11/18 08:47 Dose: 20 mg Guaifenesin (Robitussin Sf) 200 mg PO Q4H PRN PRN Reason: Cough Hydralazine HCl (Apresoline) 10 mg SLOW IVP Q4H PRN PRN Reason: SBP > 170 or DBP > 100 Last Admin: 10/11/18 08:46 Dose: 10 mg Piperacillin Sod/Tazobactam (Sod 3.375 gm/ Sodium Chloride) 100 mls @ 200 mls/ hr IVPB Q6HR [facility] Last Admin: 10/11/18 05:23 Dose: 100 mls Labetalol HCl (Normodyne) 20 mg SLOW IVP Q2H PRN PRN Reason: SBP GREATER THAN 160 Last Admin: 10/11/18 05:23 Dose: 20 mg Mineral Oil/White Petrolatum (Eucerin Cream) 0 gm TOP BIDPRN PRN PRN Reason: Dry Skin Naloxone HCl (Narcan) 0.2 mg IV Q5MIN PRN PRN Reason: Opiate Reversal Ondansetron HCl (Zofran) 4 mg IVP Q6H PRN PRN Reason: Nausea/Vomiting Last Admin: 10/10/18 18:04 Dose: 4 mg Ondansetron HCl (Zofran Odt) 4 mg PO Q6H PRN PRN Reason: Nausea/Vomiting Promethazine HCl (Phenergan) 12.5 mg IM Q4H PRN PRN Reason: Nausea/Vomiting Last Admin: 10/10/18 20:41 Dose: 12.5 mg Senna/Docusate Sodium (Senokot S) 2 tab PO BID PRN PRN Reason: Constipation Sodium Chloride (Flush - Normal Saline) 10 ml IVF PRN PRN PRN Reason: Saline Flush Last Admin: 10/09/18 02:32 Dose: 10 ml Sodium Chloride ([place] Nasal [place] 0.65%) 0 ml EA NARE QIDPRN PRN PRN Reason: Nasal Congestion Throat Lozenges (Cepastat Lozenges) 1 verna PO Q2H PRN PRN Reason: Sore Throat Tramadol HCl (Ultram) 50 mg PO Q6H PRN PRN Reason: Moderate Pain (4-6) Tramadol HCl (Ultram) 100 mg PO Q6H PRN PRN Reason: Moderate to Severe Pain (6-10) Zolpidem Tartrate (Ambien) 5 mg PO HSPRN PRN PRN Reason: Insomnia
[2018-10-11] MEDS ORDERED: Hydrochlorothiazide 25 MG TAB PO SCH (12:00)
[2018-10-11] MEDS ORDERED: Atenolol 25 MG TAB PO SCH (12:00)
[2018-10-11] MEDS: Ondansetron PF 4 MG/2 ML Vial IVP PRN (12:06)
[2018-10-11] MEDS: Enoxaparin Sodium 40 MG/0.4 ML SYRINGE SC SCH (20:30)
[2018-10-11] MEDS ORDERED: Labetalol HCl 100 MG/20 ML VIAL SLOW IVP PRN (20:55)
[2018-10-12] MEDS: Piperacillin/Tazobactam 3.375 GM in Sodium Chloride 0.9% 100 ML IVPB SCH ×3 (05:33→17:54)
[2018-10-12] MEDS: Hydrochlorothiazide 25 MG TAB PO SCH (08:08)
[2018-10-12] MEDS: Famotidine 20 MG TAB PO SCH ×2 (08:08→21:14)
[2018-10-12] MEDS: Atenolol 25 MG TAB PO SCH (08:08)
[2018-10-12] MEDS: Famotidine/PF 20 mg/2ml Vial SLOW IVP SCH (08:10)
[2018-10-12] MEDS ORDERED: Amlodipine 5 MG TAB PO SCH (10:00)
--- NOTE | 2018-10-12 10:13 | PDOC.PN ---
- Subjective Encounter Start Date: 10/12/18 Encounter Start Time: 08:30 Patient seen and examined. No new complaints. No overnight events - Objective Resuscitation Status - Order Detail: 10/06/18 22:04 Resuscitation Status Routine Resuscitation Status: FULL: Full Resuscitation MAR Reviewed: Yes Vital Signs & Weight: Vital Signs (12 hours) Temp Pulse Resp BP BP Pulse Ox 10/12/18 08:08 73 171/84 H 10/12/18 07:28 99.4 F 68 18 171/84 H 95 10/12/18 04:18 99 F 64 14 158/98 H 95 10/11/18 23:24 98.7 F 68 18 146/86 H 95 Weight Admit Weight 246 lb 14.684 oz Weight 246 lb 14.684 oz I&O: 10/11/18 10/12/18 10/13/18 06:59 06:59 06:59 Intake Total 1200 1950 Output Total 700 1675 Balance 500 275 Result Diagrams: 10/10/18 08:32 10/10/18 08:32 Phys Exam - Physical Examination Constitutional: NAD HEENT: PERRLA, moist MMs, sclera anicteric Neck: no JVD, supple Respiratory: no wheezing, no rales, no rhonchi Cardiovascular: RRR, no significant murmur, no rub Gastrointestinal: soft, non-tender, no distention, positive bowel sounds Musculoskeletal: no edema, pulses present Neurological: non-focal, normal sensation, moves all 4 limbs Lymphatic: no nodes Psychiatric: normal affect, A&O x 3 Skin: no rash, normal turgor Dx/Plan (1) Diverticulitis of intestine with perforation Code(s): K57.80 - DVTRCLI OF INTEST, PART UNSP, W PERF AND ABSCESS W/O BLEED Status: Acute Qualifiers: Diverticulitis site: large intestine Comment: S/P LAPAROTOMY, SIGMOID COLON RESECTION, AND COLOSTOMY PLACEMENT (2) Hypertension Code(s): I10 - ESSENTIAL (PRIMARY) HYPERTENSION Status: Chronic (3) Obesity (BMI 30.0-34.9) Code(s): E66.9 - OBESITY, UNSPECIFIED Status: Chronic (4) Postoperative ileus Code(s): K91.89 - OTH POSTPROCEDURAL COMPLICATIONS AND DISORDERS OF DGSTV SYS; K56.7 - ILEUS, UNSPECIFIED Status: Acute - Plan cont current plan of care, PT/OT, long term care social worker, out of bed/ambulate * diet advancement as per surgeon * add amlodipine * await placement * continue current medical treatment * symptomatic treatment. Review of Systems - Review of Systems ENT: negative: Ear Pain, Ear Discharge, Nose Pain, Nose Discharge, Nose Congestion, Mouth Pain, Mouth Swelling, Throat Pain, Throat Swelling, Other Respiratory: negative: Cough, Dry, Shortness of Breath, Hemoptysis, SOB with Excertion, Pleuritic Pain, Sputum, Wheezing Cardiovascular: negative: chest pain, palpitations, orthopnea, paroxysmal nocturnal dyspnea, edema, light headedness, other Gastrointestinal: negative: Nausea, Vomiting, Abdominal Pain, Diarrhea, Constipation, Melena, Hematochezia, Other Genitourinary: negative: Dysuria, Frequency, Incontinence, Hematuria, Retention , Other Musculoskeletal: negative: Neck Pain, Shoulder Pain, Arm Pain, Back Pain, Hand Pain, Leg Pain, Foot Pain, Other - Medications/Allergies Allergies/Adverse Reactions: Allergies Allergy/AdvReac Type Severity Reaction Status Date / Time No Known Allergies Allergy Unverified 10/06/18 22:12 Medications: Current Medications Acetaminophen (Tylenol) 650 mg PO Q6H PRN PRN Reason: Mild Pain (1-3) Hydrocodone Bitart/Acetaminophen ([place] 7.5/325) 1 tab PO Q6H PRN PRN Reason: Mild Pain (1-3) Albuterol/Ipratropium (Duoneb) 3 ml NEB Q4H PRN PRN Reason: Wheezing Artificial Tears (Tears Naturale) 2 drop EA EYE PRN PRN PRN Reason: Dry Eyes Atenolol (Tenormin) 25 mg PO DAILY [facility] Last Admin: 10/12/18 08:08 Dose: 25 mg Diphenhydramine HCl (Benadryl) 25 mg IVP Q3H PRN PRN Reason: Itching Diphenhydramine HCl (Benadryl) 25 mg PO Q3H PRN PRN Reason: Itching Diphenhydramine HCl (Benadryl) 25 mg IM Q3H PRN PRN Reason: Itching Enoxaparin Sodium (Lovenox) 40 mg SC 2100 [facility] Last Admin: 10/11/18 20:30 Dose: 40 mg Famotidine (Pepcid) 20 mg PO Q12HR [facility] Last Admin: 10/12/18 08:08 Dose: 20 mg Famotidine (Pepcid) 20 mg SLOW IVP Q12HR [facility] Last Admin: 10/12/18 08:10 Dose: Not Given Guaifenesin (Robitussin Sf) 200 mg PO Q4H PRN PRN Reason: Cough Hydralazine HCl (Apresoline) 10 mg SLOW IVP Q4H PRN PRN Reason: SBP > 170 or DBP > 100 Last Admin: 10/11/18 17:31 Dose: 10 mg Hydrochlorothiazide (Hydrochlorothiazide) 25 mg PO DAILY [facility] Last Admin: 10/12/18 08:08 Dose: 25 mg Piperacillin Sod/Tazobactam (Sod 3.375 gm/ Sodium Chloride) 100 mls @ 200 mls/ hr IVPB Q6HR [facility] Last Admin: 10/12/18 05:33 Dose: 100 mls Labetalol HCl (Normodyne) 20 mg SLOW IVP Q2H PRN PRN Reason: SBP GREATER THAN 160 Mineral Oil/White Petrolatum (Eucerin Cream) 0 gm TOP BIDPRN PRN PRN Reason: Dry Skin Naloxone HCl (Narcan) 0.2 mg IV Q5MIN PRN PRN Reason: Opiate Reversal Ondansetron HCl (Zofran) 4 mg IVP Q6H PRN PRN Reason: Nausea/Vomiting Last Admin: 10/11/18 12:06 Dose: 4 mg Ondansetron HCl (Zofran Odt) 4 mg PO Q6H PRN PRN Reason: Nausea/Vomiting Promethazine HCl (Phenergan) 12.5 mg IM Q4H PRN PRN Reason: Nausea/Vomiting Last Admin: 10/10/18 20:41 Dose: 12.5 mg Senna/Docusate Sodium (Senokot S) 2 tab PO BID PRN PRN Reason: Constipation Sodium Chloride (Flush - Normal Saline) 10 ml IVF PRN PRN PRN Reason: Saline Flush Last Admin: 10/09/18 02:32 Dose: 10 ml Sodium Chloride ([place] Nasal [place] 0.65%) 0 ml EA NARE QIDPRN PRN PRN Reason: Nasal Congestion Throat Lozenges (Cepastat Lozenges) 1 verna PO Q2H PRN PRN Reason: Sore Throat Tramadol HCl (Ultram) 50 mg PO Q6H PRN PRN Reason: Moderate Pain (4-6) Tramadol HCl (Ultram) 100 mg PO Q6H PRN PRN Reason: Moderate to Severe Pain (6-10) Last Admin: 10/11/18 13:38 Dose: 100 mg Zolpidem Tartrate (Ambien) 5 mg PO HSPRN PRN PRN Reason: Insomnia
[2018-10-12] MEDS: hydrALAZINE 20 MG/ML VIAL SLOW IVP PRN (17:59)
[2018-10-12] MEDS ORDERED: Acetaminophen 500 MG TAB PO PRN (19:16)
[2018-10-12] MEDS ORDERED: Ibuprofen 600 MG TAB PO PRN (19:16)
--- NOTE | 2018-10-12 19:29 | PRG ---
DATE OF SERVICE: 10/12/2018 SUBJECTIVE: Ms. Perez is seen for Dr. Garcia. The patient has undergone on 10/06/2018, laparotomy, sigmoid colectomy with colostomy. She had perforated sigmoid diverticulitis. Pathology revealed changes of diverticulitis. No malignancy. The patient's diet was advanced to regular diet today. Colostomy function is working. She is having occasional nausea. OBJECTIVE: LUNGS: Clear to auscultation. CARDIAC: Regular rhythm without murmur or gallop. ABDOMEN: Soft, nontender with good bowel sounds. Colostomy is healthy. ASSESSMENT AND PLAN: Bowel function is resuming. She is essentially tolerating her diet. Bowel function is improving. Would continue observation. Expect her to be discharged home in the next day or two. Encourage mobility. Job ID: [id number]
[2018-10-12] MEDS: Enoxaparin Sodium 40 MG/0.4 ML SYRINGE SC SCH (21:14)
[2018-10-13] MEDS: Piperacillin/Tazobactam 3.375 GM in Sodium Chloride 0.9% 100 ML IVPB SCH ×3 (00:01→12:47)
[2018-10-13] MEDS: Hydrochlorothiazide 25 MG TAB PO SCH (08:54)
[2018-10-13] MEDS: Atenolol 25 MG TAB PO SCH (08:54)
[2018-10-13] MEDS: Polyethylene Glycol 3350 17 GM Packet PO SCH (08:54)
[2018-10-13] MEDS: Amlodipine 5 MG TAB PO SCH (08:54)
[2018-10-13] MEDS: Famotidine 20 MG TAB PO SCH ×2 (08:54→20:23)
--- NOTE | 2018-10-13 09:46 | PDOC.PN ---
- Subjective Encounter Start Date: 10/13/18 Encounter Start Time: 08:10 Patient seen and examined. No new complaints. No overnight events - Objective Resuscitation Status - Order Detail: 10/06/18 22:04 Resuscitation Status Routine Resuscitation Status: FULL: Full Resuscitation MAR Reviewed: Yes Vital Signs & Weight: Vital Signs (12 hours) Temp Pulse Resp BP Pulse Ox 10/13/18 07:53 98.5 F 66 24 H 158/95 H 97 10/13/18 04:00 99.3 F 62 16 156/69 H 92 L 10/13/18 00:00 99.2 F 67 18 149/84 H 95 Weight Admit Weight 246 lb 14.684 oz Weight 246 lb 14.684 oz I&O: 10/12/18 10/13/18 10/14/18 06:59 06:59 06:59 Intake Total 1950 1830 Output Total 1675 250 Balance 275 1580 Result Diagrams: 10/10/18 08:32 10/10/18 08:32 Phys Exam - Physical Examination Constitutional: NAD HEENT: PERRLA, moist MMs, sclera anicteric Neck: no JVD, supple Respiratory: no wheezing, no rales, no rhonchi Cardiovascular: RRR, no significant murmur, no rub Gastrointestinal: soft, non-tender, no distention, positive bowel sounds colostomy+ Musculoskeletal: no edema, pulses present Neurological: non-focal, normal sensation, moves all 4 limbs Lymphatic: no nodes Psychiatric: normal affect, A&O x 3 Skin: no rash, normal turgor Dx/Plan (1) Diverticulitis of intestine with perforation Code(s): K57.80 - DVTRCLI OF INTEST, PART UNSP, W PERF AND ABSCESS W/O BLEED Status: Acute Qualifiers: Diverticulitis site: large intestine Comment: S/P LAPAROTOMY, SIGMOID COLON RESECTION, AND COLOSTOMY PLACEMENT (2) Hypertension Code(s): I10 - ESSENTIAL (PRIMARY) HYPERTENSION Status: Chronic (3) Obesity (BMI 30.0-34.9) Code(s): E66.9 - OBESITY, UNSPECIFIED Status: Chronic (4) Postoperative ileus Code(s): K91.89 - OTH POSTPROCEDURAL COMPLICATIONS AND DISORDERS OF DGSTV SYS; K56.7 - ILEUS, UNSPECIFIED Status: Acute - Plan cont current plan of care, continue antibiotics * continue current medical treatment * symptomatic treatment * pt is improving * she will be ready for discharge tomorrow to go to rehab/snu. Review of Systems - Review of Systems ENT: negative: Ear Pain, Ear Discharge, Nose Pain, Nose Discharge, Nose Congestion, Mouth Pain, Mouth Swelling, Throat Pain, Throat Swelling, Other Respiratory: negative: Cough, Dry, Shortness of Breath, Hemoptysis, SOB with Excertion, Pleuritic Pain, Sputum, Wheezing Cardiovascular: negative: chest pain, palpitations, orthopnea, paroxysmal nocturnal dyspnea, edema, light headedness, other Gastrointestinal: negative: Nausea, Vomiting, Abdominal Pain, Diarrhea, Constipation, Melena, Hematochezia, Other Genitourinary: negative: Dysuria, Frequency, Incontinence, Hematuria, Retention , Other Musculoskeletal: negative: Neck Pain, Shoulder Pain, Arm Pain, Back Pain, Hand Pain, Leg Pain, Foot Pain, Other - Medications/Allergies Allergies/Adverse Reactions: Allergies Allergy/AdvReac Type Severity Reaction Status Date / Time No Known Allergies Allergy Unverified 10/06/18 22:12 Medications: Current Medications Acetaminophen (Tylenol) 1,000 mg PO Q6H PRN PRN Reason: Moderate to Severe Pain (6-10) Albuterol/Ipratropium (Duoneb) 3 ml NEB Q4H PRN PRN Reason: Wheezing Amlodipine Besylate (Norvasc) 5 mg PO DAILY [facility] Last Admin: 10/13/18 08:54 Dose: 5 mg Artificial Tears (Tears Naturale) 2 drop EA EYE PRN PRN PRN Reason: Dry Eyes Atenolol (Tenormin) 25 mg PO DAILY [facility] Last Admin: 10/13/18 08:54 Dose: 25 mg Diphenhydramine HCl (Benadryl) 25 mg IVP Q3H PRN PRN Reason: Itching Diphenhydramine HCl (Benadryl) 25 mg PO Q3H PRN PRN Reason: Itching Diphenhydramine HCl (Benadryl) 25 mg IM Q3H PRN PRN Reason: Itching Enoxaparin Sodium (Lovenox) 40 mg SC 2100 [facility] Last Admin: 10/12/18 21:14 Dose: 40 mg Famotidine (Pepcid) 20 mg PO Q12HR [facility] Last Admin: 10/13/18 08:54 Dose: 20 mg Guaifenesin (Robitussin Sf) 200 mg PO Q4H PRN PRN Reason: Cough Hydralazine HCl (Apresoline) 10 mg SLOW IVP Q4H PRN PRN Reason: SBP > 170 or DBP > 100 Last Admin: 10/12/18 17:59 Dose: 10 mg Hydrochlorothiazide (Hydrochlorothiazide) 25 mg PO DAILY [facility] Last Admin: 10/13/18 08:54 Dose: 25 mg Piperacillin Sod/Tazobactam (Sod 3.375 gm/ Sodium Chloride) 100 mls @ 200 mls/ hr IVPB Q6HR [facility] Last Admin: 10/13/18 05:44 Dose: 100 mls Ibuprofen (Motrin) 600 mg PO Q6H PRN PRN Reason: Mild-Moderate Pain (1-5) Labetalol HCl (Normodyne) 20 mg SLOW IVP Q2H PRN PRN Reason: SBP GREATER THAN 160 Mineral Oil/White Petrolatum (Eucerin Cream) 0 gm TOP BIDPRN PRN PRN Reason: Dry Skin Naloxone HCl (Narcan) 0.2 mg IV Q5MIN PRN PRN Reason: Opiate Reversal Ondansetron HCl (Zofran) 4 mg IVP Q6H PRN PRN Reason: Nausea/Vomiting Last Admin: 10/11/18 12:06 Dose: 4 mg Ondansetron HCl (Zofran Odt) 4 mg PO Q6H PRN PRN Reason: Nausea/Vomiting Last Admin: 10/12/18 14:19 Dose: 4 mg Polyethylene Glycol (Miralax) 17 gm PO DAILY [facility] Last Admin: 10/13/18 08:54 Dose: 17 gm Promethazine HCl (Phenergan) 12.5 mg IM Q4H PRN PRN Reason: Nausea/Vomiting Last Admin: 10/10/18 20:41 Dose: 12.5 mg Senna/Docusate Sodium (Senokot S) 2 tab PO BID PRN PRN Reason: Constipation Sodium Chloride (Flush - Normal Saline) 10 ml IVF PRN PRN PRN Reason: Saline Flush Last Admin: 10/09/18 02:32 Dose: 10 ml Sodium Chloride ([place] Nasal [place] 0.65%) 0 ml EA NARE QIDPRN PRN PRN Reason: Nasal Congestion Throat Lozenges (Cepastat Lozenges) 1 verna PO Q2H PRN PRN Reason: Sore Throat Tramadol HCl (Ultram) 50 mg PO Q6H PRN PRN Reason: Moderate Pain (4-6) Tramadol HCl (Ultram) 100 mg PO Q6H PRN PRN Reason: Moderate to Severe Pain (6-10) Last Admin: 10/11/18 13:38 Dose: 100 mg Zolpidem Tartrate (Ambien) 5 mg PO HSPRN PRN PRN Reason: Insomnia
--- NOTE | 2018-10-13 17:06 | PRG ---
DATE OF SERVICE: 10/13/2018 SUBJECTIVE: Latrell Perez is seen for Dr. Garcia today. She is doing well. Temperature 98.6 degrees, heart rate 76, and blood pressure 166/82. She is status post on 10/06/2018 laparotomy, Anjelica's procedure, colostomy for perforated diverticulitis. The patient is mobile. She is tolerating her diet. She is passing flatus and stool. Laboratories none since 10/10. OBJECTIVE: VITAL SIGNS: Temperature 98.6, heart rate 76, blood pressure 176/82. LUNGS: Clear to auscultation. CARDIAC: Regular rate and rhythm without murmur or gallop. ABDOMEN: Soft and nontender. Her abdominal wound looks good. EXTREMITIES: Unremarkable. ASSESSMENT AND PLAN: Placement was going to rehab tomorrow. We will let Dr. Garcia assess her tomorrow, and make discharge planning. Job ID: [id number]
[2018-10-13] MEDS: Enoxaparin Sodium 40 MG/0.4 ML SYRINGE SC SCH (20:23)
[2018-10-13] MEDS: Ondansetron PF 4 MG/2 ML Vial IVP PRN (20:23)
[2018-10-14] MEDS: Atenolol 25 MG TAB PO SCH (08:42)
[2018-10-14] MEDS: Famotidine 20 MG TAB PO SCH (08:42)
[2018-10-14] MEDS: Amlodipine 5 MG TAB PO SCH (08:42)
[2018-10-14] MEDS: Hydrochlorothiazide 25 MG TAB PO SCH (08:42)
[2018-10-14] MEDS: Polyethylene Glycol 3350 17 GM Packet PO SCH (08:42)
--- NOTE | 2018-10-14 10:36 | PDOC.PN ---
- Subjective Encounter Start Date: 10/14/18 Encounter Start Time: 09:50 Patient seen and examined. No new complaints. No overnight events - Objective Resuscitation Status - Order Detail: 10/06/18 22:04 Resuscitation Status Routine Resuscitation Status: FULL: Full Resuscitation MAR Reviewed: Yes Vital Signs & Weight: Vital Signs (12 hours) Temp Pulse Resp BP BP Pulse Ox 10/14/18 07:35 98.4 F 77 20 159/88 H 93 L 10/14/18 04:00 98.5 F 74 18 152/82 H 92 L 10/14/18 00:00 98.5 F 67 16 152/74 H 92 L Weight Admit Weight 246 lb 14.684 oz Weight 246 lb 14.684 oz I&O: 10/13/18 10/14/18 10/15/18 06:59 06:59 06:59 Intake Total 1830 1650 Output Total 250 325 Balance 1580 1325 Result Diagrams: 10/10/18 08:32 10/10/18 08:32 Phys Exam - Physical Examination Constitutional: NAD HEENT: PERRLA, moist MMs, sclera anicteric Neck: no JVD, supple Respiratory: no wheezing, no rales, no rhonchi Cardiovascular: RRR, no significant murmur, no rub Gastrointestinal: soft, non-tender, no distention, positive bowel sounds colostomy+ Musculoskeletal: no edema, pulses present Neurological: non-focal, normal sensation Lymphatic: no nodes Psychiatric: normal affect, A&O x 3 Skin: no rash, normal turgor Dx/Plan (1) Diverticulitis of intestine with perforation Code(s): K57.80 - DVTRCLI OF INTEST, PART UNSP, W PERF AND ABSCESS W/O BLEED Status: Acute Qualifiers: Diverticulitis site: large intestine Comment: S/P LAPAROTOMY, SIGMOID COLON RESECTION, AND COLOSTOMY PLACEMENT (2) Hypertension Code(s): I10 - ESSENTIAL (PRIMARY) HYPERTENSION Status: Chronic (3) Obesity (BMI 30.0-34.9) Code(s): E66.9 - OBESITY, UNSPECIFIED Status: Chronic (4) Postoperative ileus Code(s): K91.89 - OTH POSTPROCEDURAL COMPLICATIONS AND DISORDERS OF DGSTV SYS; K56.7 - ILEUS, UNSPECIFIED Status: Acute - Plan cont current plan of care * medication reviewed as below * symptomatic treatment * see discharge elba. Review of Systems - Review of Systems ENT: negative: Ear Pain, Ear Discharge, Nose Pain, Nose Discharge, Nose Congestion, Mouth Pain, Mouth Swelling, Throat Pain, Throat Swelling, Other Respiratory: negative: Cough, Dry, Shortness of Breath, Hemoptysis, SOB with Excertion, Pleuritic Pain, Sputum, Wheezing Cardiovascular: negative: chest pain, palpitations, orthopnea, paroxysmal nocturnal dyspnea, edema, light headedness, other Gastrointestinal: negative: Nausea, Vomiting, Abdominal Pain, Diarrhea, Constipation, Melena, Hematochezia, Other Genitourinary: negative: Dysuria, Frequency, Incontinence, Hematuria, Retention , Other Musculoskeletal: negative: Neck Pain, Shoulder Pain, Arm Pain, Back Pain, Hand Pain, Leg Pain, Foot Pain, Other - Medications/Allergies Allergies/Adverse Reactions: Allergies Allergy/AdvReac Type Severity Reaction Status Date / Time No Known Allergies Allergy Unverified 10/06/18 22:12 Medications: Current Medications Acetaminophen (Tylenol) 1,000 mg PO Q6H PRN PRN Reason: Moderate to Severe Pain (6-10) Albuterol/Ipratropium (Duoneb) 3 ml NEB Q4H PRN PRN Reason: Wheezing Amlodipine Besylate (Norvasc) 5 mg PO DAILY [facility] Last Admin: 10/14/18 08:42 Dose: 5 mg Artificial Tears (Tears Naturale) 2 drop EA EYE PRN PRN PRN Reason: Dry Eyes Atenolol (Tenormin) 25 mg PO DAILY [facility] Last Admin: 10/14/18 08:42 Dose: 25 mg Diphenhydramine HCl (Benadryl) 25 mg IVP Q3H PRN PRN Reason: Itching Diphenhydramine HCl (Benadryl) 25 mg PO Q3H PRN PRN Reason: Itching Diphenhydramine HCl (Benadryl) 25 mg IM Q3H PRN PRN Reason: Itching Enoxaparin Sodium (Lovenox) 40 mg SC 2100 [facility] Last Admin: 10/13/18 20:23 Dose: 40 mg Famotidine (Pepcid) 20 mg PO Q12HR [facility] Last Admin: 10/14/18 08:42 Dose: 20 mg Guaifenesin (Robitussin Sf) 200 mg PO Q4H PRN PRN Reason: Cough Hydralazine HCl (Apresoline) 10 mg SLOW IVP Q4H PRN PRN Reason: SBP > 170 or DBP > 100 Last Admin: 10/12/18 17:59 Dose: 10 mg Hydrochlorothiazide (Hydrochlorothiazide) 25 mg PO DAILY [facility] Last Admin: 10/14/18 08:42 Dose: 25 mg Ibuprofen (Motrin) 600 mg PO Q6H PRN PRN Reason: Mild-Moderate Pain (1-5) Labetalol HCl (Normodyne) 20 mg SLOW IVP Q2H PRN PRN Reason: SBP GREATER THAN 160 Mineral Oil/White Petrolatum (Eucerin Cream) 0 gm TOP BIDPRN PRN PRN Reason: Dry Skin Naloxone HCl (Narcan) 0.2 mg IV Q5MIN PRN PRN Reason: Opiate Reversal Ondansetron HCl (Zofran) 4 mg IVP Q6H PRN PRN Reason: Nausea/Vomiting Last Admin: 10/13/18 20:23 Dose: 4 mg Ondansetron HCl (Zofran Odt) 4 mg PO Q6H PRN PRN Reason: Nausea/Vomiting Last Admin: 10/12/18 14:19 Dose: 4 mg Polyethylene Glycol (Miralax) 17 gm PO DAILY [facility] Last Admin: 10/14/18 08:42 Dose: 17 gm Senna/Docusate Sodium (Senokot S) 2 tab PO BID PRN PRN Reason: Constipation Sodium Chloride (Flush - Normal Saline) 10 ml IVF PRN PRN PRN Reason: Saline Flush Last Admin: 10/09/18 02:32 Dose: 10 ml Sodium Chloride ([place] Nasal [place] 0.65%) 0 ml EA NARE QIDPRN PRN PRN Reason: Nasal Congestion Throat Lozenges (Cepastat Lozenges) 1 verna PO Q2H PRN PRN Reason: Sore Throat Tramadol HCl (Ultram) 50 mg PO Q6H PRN PRN Reason: Moderate Pain (4-6) Tramadol HCl (Ultram) 100 mg PO Q6H PRN PRN Reason: Moderate to Severe Pain (6-10) Last Admin: 10/11/18 13:38 Dose: 100 mg Zolpidem Tartrate (Ambien) 5 mg PO HSPRN PRN PRN Reason: Insomnia
[2018-10-14 12:30] VITALS: BP 158/86; TEMP 98.8
--- NOTE | 2018-10-14 14:37 | DIS ---
DATE OF ADMISSION: 10/06/2018 DATE OF DISCHARGE: 10/14/2018 PRIMARY CARE PHYSICIAN: Carol Nicole DO. DISCHARGE DISPOSITION: Home. PRIMARY DISCHARGE DIAGNOSES: Diverticulitis of intestine with perforation status post resection and colostomy, postoperative ileus. SECONDARY DISCHARGE DIAGNOSES: Hypertension, obesity. PRIMARY PROCEDURE/OPERATION: Dr. Garcia did exploratory laparotomy, sigmoid colectomy with colostomy and mobilization of splenic flexure. RADIOLOGICAL INVESTIGATION: Abdomen and pelvis CT scan. SIGNIFICANT LABORATORY DATA: Hemoglobin 11.0, creatinine 0.60. LFT normal. DISCHARGE MEDICATIONS: 1. Atenolol 25 mg p.o. daily. 2. Hydrochlorothiazide 25 mg daily. 3. Pepcid 20 mg b.i.d. 4. Norvasc 5 mg daily. 5. MiraLAX 17 g p.o. daily. CONTRAINDICATION: None. CODE STATUS: Full code. INPATIENT STILL RUNNER: Dr. Garcia was consulted while in hospital. TEST RESULT PENDING ON DISCHARGE: None. ALLERGIES: NO KNOWN DRUG ALLERGIES. DISCHARGE PLAN: Posthospital, the patient will follow up with primary care physician. HOSPITAL COURSE: A 57-year-old female with above-mentioned medical problem, who was admitted by Dr. Ramírez. Please see his H and P for further detail. The patient was having left lower quadrant pain. She had CT abdomen and pelvis, which showed acute diverticulitis with perforation. She was admitted under Medicine Service. General Surgery was consulted. The patient was taken to OR, laparotomy was performed. Sigmoid colectomy and colostomy were performed. Subsequently, the patient had postoperative ileus that took a few days to resolve. During this period, the patient was treated with empiric antibiotic therapy with Zosyn. Antibiotic therapy was discontinued before discharge. The patient was tolerating diet well. She had slow advancement in her diet without any problem. Initially, there was plan to send her to correction home, but as the patient has significant improvement in her overall status that is why the patient decided to go home without any correction home placement. The patient's pain is well controlled and she does not need any pain medication other than Tylenol and Motrin as needed basis. The patient is seen and examined at bedside today. Necessary postoperative care was discussed with the patient. She will follow up with Dr. Garcia after discharge as instructed and follow up with primary care physician. Please see my progress note from today for further detail. Job ID: [id number]
== END 2018-10-14 15:16 | disposition home or self-care (01) | DRG 330 ==
LOC: ERS 20:08 → SURG B 22:15
PROVIDERS: ADMIT Internal Medicine; ATTEND Internal Medicine
PROC: 0DBN0ZZ Excision of Sigmoid Colon, Open Approach (ICD-10-PCS; principal; 2018-10-06)
PROC: 0D1N074 Bypass Sigmoid Colon to Cutaneous with Autologous Tissue Substitute, Open Approach (ICD-10-PCS; 2018-10-06)
DX: K57.81 Diverticulitis of intestine, part unspecified, with perforation and abscess with bleeding (principal); K56.7 Ileus, unspecified; I10 Essential (primary) hypertension; E66.9 Obesity, unspecified; Z68.36 Body mass index [BMI] 36.0-36.9, adult
CPT/HCPCS: 36415; 36416; 80048; 80053; 83605; 83735; 84100; 85025; 86850; 86900; 86901; 88307; 94760; 96361; 96374; 96376; J0131; J0360; J1100; J1650; J2001; J2270; J2405; J2543; J2550; J2704; J3010; J3490; Q0162; S0028

== ENCOUNTER 2019-01-07 10:05 | Outpatient (CLI) | payer BC ==
[2019-01-07 11:59] LABS: Hemoglobin A1c 4.9 % (4.0-6.0)
[2019-01-07 12:14] LABS: Anion Gap 13 mmol/L (10-20); BUN (Urea Nitrogen) 8 mg/dL (9.8-20.1); Calc. Creatinine Clearance 0 mL/min (70-130); Calcium 9.4 mg/dL (7.8-10.44); Carbon Dioxide 26 mmol/L (22-29); Chloride 105 mmol/L (98-107); Estimated GFR-MDRD Greater than 90; Glucose 83 mg/dL (70-105); Potassium 3.7 mmol/L (3.5-5.1); Sodium 140 mmol/L (136-145)
--- NOTE | 2019-01-10 08:02 | EKG ---
Test Reason : Blood Pressure : / mmHG Vent. Rate : 054 BPM Atrial Rate : 054 BPM P-R Int : 138 ms QRS Dur : 088 ms QT Int : 434 ms P-R-T Axes : 065 037 040 degrees QTc Int : 411 ms Baseline artifact Sinus bradycardia with Premature supraventricular complexes Otherwise normal ECG No previous ECGs available Confirmed by DR. Jeremiah MCCORD ([id number]) on 01/10/2019 8:00:36 AM Referred By: TIAGO Confirmed By:DR. Jeremiah MCCORD
== END 2019-01-07 10:06 | disposition home or self-care (01) ==
LOC: LABBT 10:05
PROVIDERS: ATTEND Surgery
DX: Z01.818 Encounter for other preprocedural examination (principal); K57.20 Diverticulitis of large intestine with perforation and abscess without bleeding
CPT/HCPCS: 80048; 83036; 93005; 93010

== ENCOUNTER 2019-08-25 11:14 | Outpatient (CLI) | payer BC ==
--- NOTE | 2019-08-25 12:56 | MMO ---
Bilateral MAMMO Bilat Screen [facility]. CLINICAL HISTORY: Patient is 58 years old and is seen for screening. The patient has no family history of breast cancer. The patient has no personal history of cancer. The patient has a history of left Cyst Aspiration in ? - benign. VIEWS: The views performed were: bilateral craniocaudal with tomosynthesis and bilateral mediolateral oblique with tomosynthesis. FILMS COMPARED: The present examination has been compared to prior imaging studies performed at [facility] on 06/13/2013, 06/28/2016 and 08/16/2017. This study has been interpreted with the assistance of computer-aided detection. MAMMOGRAM FINDINGS: The breasts are extremely dense, which may lower the sensitivity of mammography. Finding 1: There are stable benign appearing calcifications seen in both breasts. Finding 2: There are stable benign appearing densities seen in both breasts. There are no suspicious masses, suspicious calcifications, or new areas of architectural distortion. IMPRESSION: THERE IS NO MAMMOGRAPHIC EVIDENCE OF MALIGNANCY. A ROUTINE FOLLOW-UP MAMMOGRAM IN 1 YEAR IS RECOMMENDED. THE RESULTS OF THIS EXAM WERE SENT TO THE PATIENT. ACR BI-RADS Category 2 - Benign finding MAMMOGRAPHY NOTE: 1. A negative mammogram report should not delay a biopsy if a dominant of clinically suspicious mass is present. 2. Approximately 10% to 15% of breast cancers are not detected by mammography. 3. Adenosis and dense breasts may obscure an underlying neoplasm. Reported by: ALEXA GRAVES MD Electonically Signed: [id number]
== END 2019-08-25 11:15 | disposition home or self-care (01) ==
LOC: BICMAMMO 11:14
PROVIDERS: ATTEND Family Medicine
DX: Z12.31 Encounter for screening mammogram for malignant neoplasm of breast (principal)
CPT/HCPCS: 77063; 77067

== ENCOUNTER 2020-03-03 06:17 | Observation (INO) | payer BC ==
[2020-02-27 15:04] VITALS: BMI 34.2
[2020-03-03] MEDS ORDERED: Ketorolac Tromethamine 30 MG/ML VIAL ONE ×2 (10:34→17:02)
[2020-03-03] MEDS ORDERED: Lidocaine 1% PF 5 ML VIAL ONE (10:34)
[2020-03-03] MEDS ORDERED: PROPOFOL 200 MG/20 ML VIAL ONE (10:34)
[2020-03-03] MEDS ORDERED: Glycopyrrolate 0.2 MG/ML 5 ML SYRINGE ONE (10:34)
[2020-03-03] MEDS ORDERED: Dexamethasone 20 MG/5 ML VIAL ONE (10:34)
[2020-03-03] MEDS ORDERED: Rocuronium Bromide 10 MG/ML (10ML VIAL) ONE (10:34)
[2020-03-03] MEDS ORDERED: PHENYLEPHRINE-NS 100 MCG/ML 10 ML SYRINGE ONE (10:34)
[2020-03-03] MEDS ORDERED: Ondansetron PF 4 MG/2 ML Vial ONE (10:34)
[2020-03-03] MEDS ORDERED: Meperidine HCl/PF 25 MG/ML VIAL ONE (11:58)
[2020-03-03] MEDS ORDERED: Fentanyl 100 MCG/2 ML VIAL ONE ×4 (12:01→14:02)
[2020-03-03] MEDS ORDERED: Promethazine HCl 25 MG/ML VIAL ONE (12:41)
[2020-03-03] MEDS ORDERED: HYDROmorphone 2 MG/ML VIAL ONE (14:01)
[2020-03-03] MEDS ORDERED: Dextrose 50% Abboject 50 ML SYRINGE SLOW IVP PRN (16:27)
[2020-03-03] MEDS ORDERED: Promethazine HCl 25 MG/ML VIAL IM PRN (16:27)
[2020-03-03] MEDS ORDERED: Dextrose 5% in Water 1,000 ML IV PRN (16:27)
[2020-03-03] MEDS ORDERED: Ondansetron PF 4 MG/2 ML Vial IVP PRN (16:27)
[2020-03-03] MEDS ORDERED: hydrALAZINE 20 MG/ML VIAL SLOW IVP PRN (16:27)
[2020-03-03] MEDS ORDERED: Fentanyl 100 MCG/2 ML VIAL SLOW IVP PRN ×2 (16:27)
[2020-03-03] MEDS: Sodium Chloride 0.9% 1,000 ML IV SCH (17:09)
[2020-03-03] MEDS: Ketorolac Tromethamine 30 MG/ML VIAL IVP PRN (17:09)
--- NOTE | 2020-03-03 17:33 | OP ---
DATE OF PROCEDURE: 03/03/2020 PREOPERATIVE DIAGNOSIS: Incisional hernia. POSTOPERATIVE DIAGNOSIS: Incisional hernia. PROCEDURE PERFORMED: Da Namrata laparoscopic incisional hernia repair with mesh, 10 x [address] ANESTHESIA: General. ESTIMATED BLOOD LOSS: Minimal. COMPLICATIONS: None. SPECIMEN: None. TECHNIQUE: The patient was taken to the operating room and laid supine on the operating room table. After general anesthetic was obtained, a Hess was placed. The abdomen was shaved, prepped, and draped in a sterile fashion. Left subcostal 5-mm Optiview trocar placed in usual fashion without injury and high-flow pneumoperitoneum was obtained. Left and right abdominal subcostal 8-mm robot ports were placed. The 5-mm port switched out to 11-mm balloon trocar. All ports were docked to the robot. The patient had multiple adhesions to the posterior abdominal wall, the area had to be taken down sharply without injury. The patient had multiple defects in the upper midline. The preperitoneal fat and peritoneum were dissected off the posterior fascia. #1 V-Loc suture was used to close all the defects in the midline in a running fashion, it took two of these V-Locs to perform this maneuver. The mesh was brought in and measured and placed in the abdominal cavity and the exposed mesh part was placed up against the posterior fascia. The nonadherent barrier portion was left up against the abdominal viscera. The needles from V-Locs were used to hold it to the posterior abdominal wall. 2-0 V-Loc was then used to sew the mesh circumferentially around holding it to the posterior fascia. All needles were removed from the abdomen and accounted for. There was no injury to any intraabdominal structures. All port sites were infiltrated using local anesthetic. All ports were removed under camera visualization. Pneumoperitoneum was let down. 4-0 Monocryl and Dermabond were used to close all skin incisions. The patient was sent to Recovery in stable condition. All instrument counts, needle counts, and lap counts were correct. Job ID: [id number]
[2020-03-03] MEDS: HYDROcodone/Acetaminophen 10/325 mg Tablet PO PRN (18:51)
[2020-03-03] MEDS: Famotidine 20 MG TAB PO SCH (19:39)
[2020-03-03] MEDS: Famotidine/PF 20 mg/2ml Vial SLOW IVP SCH (19:39)
[2020-03-04] MEDS: Ketorolac Tromethamine 30 MG/ML VIAL IVP PRN ×2 (01:57→08:32)
[2020-03-04] MEDS: Sodium Chloride 0.9% 1,000 ML IV SCH (02:50)
[2020-03-04] MEDS: Famotidine 20 MG TAB PO SCH (08:31)
[2020-03-04] MEDS: Famotidine/PF 20 mg/2ml Vial SLOW IVP SCH (08:32)
[2020-03-04] MEDS ORDERED: Atenolol 25 MG TAB PO SCH (09:00)
[2020-03-04] MEDS ORDERED: Polyethylene Glycol 3350 17 GM Packet PO SCH (09:00)
[2020-03-04] MEDS ORDERED: Hydrochlorothiazide 25 MG TAB PO SCH (09:00)
[2020-03-04] MEDS: HYDROcodone/Acetaminophen 10/325 mg Tablet PO PRN (11:45)
[2020-03-04 14:32] VITALS: BP 158/81; TEMP 98.3
== END 2020-03-04 14:39 | disposition home or self-care (01) ==
LOC: SDC 06:17 → SURG B 11:50
PROVIDERS: ADMIT Surgery; ATTEND Surgery
PROC: 0WUF4JZ Supplement Abdominal Wall with Synthetic Substitute, Percutaneous Endoscopic Approach (ICD-10-PCS; principal; 2020-03-03)
DX: K43.2 Incisional hernia without obstruction or gangrene (principal); I10 Essential (primary) hypertension; K59.00 Constipation, unspecified; Z79.899 Other long term (current) drug therapy; Z87.891 Personal history of nicotine dependence
CPT/HCPCS: 96361; 96374; 96376; C1781; G0378; J1100; J1170; J1885; J2175; J2405; J2550; J2704; J3010

== ENCOUNTER 2020-03-06 19:33 | Emergency (ER) | payer BC ==
[~2020-03-06 19:33] MED LIST: Bupivacaine 0.25% HCL 30 ML VIAL ONE; Famotidine/PF 20 mg/2ml Vial ONE; Fentanyl 100 MCG/2 ML VIAL ONE; Iopamidol-370 76% 500 ML 1 ML ONE; Lidocaine 1% w/Epinephrine 1:100K 20 ML VIAL ONE; Midazolam HCl 2 mg/2 ml Vial ONE; Ondansetron PF 4 MG/2 ML Vial ONE; Scopolamine 1.5 mg/72 hour Patch ONE
[2020-03-06] MEDS ORDERED: Ondansetron PF 4 MG/2 ML Vial ONE (20:07)
[2020-03-06 20:10] LABS: #Eosinphils 0.2 thou/uL (0.0-0.7); #Lymphocytes 2.5 thou/uL (1.20-3.40); #Monocytes 0.7 thou/uL (0.11-0.59); #Neutrophils 6.1 thou/uL (1.40-6.50); %Basophils 0.2 % (0.0-1.0); %Eosinophils 2.5 % (0.0-10.0); %Lymphocytes 26.3 % (21.0-51.0); %Monocytes 7.4 % (0.0-10.0); %Neutrophils 63.5 % (42.0-75.0); Mean Corpuscular HGB CONC 32.6 g/dL (32.0-36.0); Mean Corpuscular Hemoglobin 31.5 pg (27.0-31.0); Mean Corpuscular Volume 96.8 fL (78.0-98.0); Mean Platelet Volume 9.3 fL (7.4-10.4); Platelet Count 172 thou/uL (130-400); RBC Distribution Width 11.4 % (11.5-14.5); Red Blood Cell (RBC) Count 4.76 mill/uL (4.20-5.40); White Blood Cell (WBC) Count 9.6 thou/uL (4.8-10.8)
--- NOTE | 2020-03-06 20:16 | RAD ---
XR Chest 1 View Portable History: Cough Comparison: None. Findings: Left basilar opacity. Linear markings right lung base. Heart size is enlarged. No pneumotho rax. No acute osseous abnormality. Impression: 1. Left basilar opacity concerning for infection. Follow-up for the treatment recommended. 2. Likely linear scar or atelectasis within the right lower lobe.
[2020-03-06] MEDS ORDERED: Lidocaine 1% PF 5 ML VIAL ONE (20:30)
[2020-03-06 21:16] LABS: ALT (SGPT) 27 U/L (8-55); AST (SGOT) 33 U/L (5-34); Albumin 4.1 g/dL (3.4-4.8); Alkaline Phosphatase 70 U/L (40-110); Anion Gap 18 mmol/L (10-20); BUN (Urea Nitrogen) 13 mg/dL (9.8-20.1); Calc. Creatinine Clearance 0 mL/min (70-130); Carbon Dioxide 23 mmol/L (23-31); Chloride 102 mmol/L (98-107); Estimated GFR-MDRD Greater than 90; Globulin 4.4 g/dL (2.4-3.5); Glucose 106 mg/dL (80-115); Lipase 14 U/L (8-78); Potassium 3.1 mmol/L (3.5-5.1); Protein, Total 8.5 g/dL (6.0-8.3); Sodium 140 mmol/L (136-145)
--- NOTE | 2020-03-06 21:30 | CT ---
CT Abdomen Pelvis W Con History: Abdominal pain Comparison: CT abdomen and pelvis with contrast February 01, 2020 Findings: Mild atelectasis within the lung bases. No significant pericardial effusion. Recent hernia repair with numerous gas and fluid-filled collections along the incision. Largest colle ction is bilobed axial image 58 measuring up to 4.2 cm in size. These collections are within the subcutaneous fat. Sutures noted at the sigmoid colon. Numerous dilated loops of small bowel measuring up to 4 cm in siz e. Cecum is mildly distended with gas. The proximal small bowel is not dilated. The transverse colon is dilated up to 5.5 cm. The spleen, adrenal glands, pancreas are unremarkable. Similar appearance of an interpolar cyst of th e right kidney. Punctate nonobstructing calculus inferior pole left kidney. Impression: 1. Numerous postoperative seromas along the anterior abdominal wall along the incision line within th e subcutaneous fat superficial to the linea alba. 2. Likely postoperative ileus of the distal small bowel as well as the ascending colon and portion of the transverse and sigmoid colon with collapsed distal sigmoid colon and rectum. Underlying internal hernia causing obstruction at the level of the sigmoid colon is felt less likely. Palma burks follow-through would be beneficial.
== END 2020-03-06 22:27 | disposition home or self-care (01) ==
LOC: ERS 19:33
DX: J18.9 Pneumonia, unspecified organism (principal); K91.30 Postprocedural intestinal obstruction, unspecified as to partial versus complete; R11.2 Nausea with vomiting, unspecified; I10 Essential (primary) hypertension; F17.210 Nicotine dependence, cigarettes, uncomplicated; Z79.899 Other long term (current) drug therapy
CPT/HCPCS: 36415; 71045; 74177; 80053; 83690; 85025; 87040; 96361; 96374; J0690; J2250; J2405; J3010; Q9967; S0020; S0028

== ENCOUNTER 2020-03-19 08:37 | Outpatient (CLI) | payer BC ==
--- NOTE | 2020-03-19 09:03 | RAD ---
EXAM: Two views chest PROVIDED CLINICAL HISTORY: Opacities at each lung. Patient states recent history of pneumonia. COMPARISON: 03/06/2020 FINDINGS: Cardiac silhouette is mildly enlarged. Pulmonary vasculature is within normal limits. Vascular calcif ications are seen in the thoracic aorta. Linear bibasilar densities are seen likely due to minimal atelectasis. There are a few overlying nodular densities at the medial left lung base which were not appreciated on prior study, but on the lateral view, there are calcifications overlying the soft tissues which likely accounts for this finding. However, follow-up evaluation is recommended. Degener ative changes are seen in the spine. IMPRESSION: Improvement in patchy opacity left lung base with improvement in subsegmental atelectasis at the righ t lung base. No new consolidation or pleural fluid is seen.
== END 2020-03-19 08:38 | disposition home or self-care (01) ==
LOC: BICRAD 08:37
PROVIDERS: ATTEND Family Medicine
DX: R91.8 Other nonspecific abnormal finding of lung field (principal); J98.11 Atelectasis
CPT/HCPCS: 71046

== ENCOUNTER 2021-08-04 03:56 | Emergency (ER) | payer BC | END 2021-08-04 04:30 | disposition home or self-care (01) | LOC: ERS 03:56 | DX: I10 Essential (primary) hypertension (principal); F17.210 Nicotine dependence, cigarettes, uncomplicated; Z87.19 Personal history of other diseases of the digestive system; Z79.899 Other long term (current) drug therapy | CPT/HCPCS: 99281 ==

== ENCOUNTER 2021-08-05 13:46 | Outpatient (CLI) | payer BC | END 2021-08-05 13:47 | disposition home or self-care (01) | LOC: BICMAMMO 13:46 | PROVIDERS: ATTEND Family Medicine | DX: Z12.31 Encounter for screening mammogram for malignant neoplasm of breast (principal); R92.1 Mammographic calcification found on diagnostic imaging of breast | CPT/HCPCS: 77063; 77067 ==

== ENCOUNTER → 2021-10-12 | Day surgery (SDC) | payer BC | END | disposition home or self-care (01) | LOC: MAMMO 07:00 | PROVIDERS: ATTEND Family Medicine | PROC: 0H9U3ZX Drainage of Left Breast, Percutaneous Approach, Diagnostic (ICD-10-PCS; principal; 2021-10-12) | DX: D05.12 Intraductal carcinoma in situ of left breast (principal); R92.0 Mammographic microcalcification found on diagnostic imaging of breast | CPT/HCPCS: 19081; 76098; 88305; 88341; 88342 ==

== ENCOUNTER 2021-11-03 10:05 | Outpatient (CLI) | payer BC ==
[2021-11-03 10:50] LABS: #Basophils 0.1 10x3/uL (0.0-0.2); #Eosinphils 0.2 10x3/uL (0.0-0.5); #Monocytes 0.8 10x3/uL (0.0-1.1); #Neutrophils 3.6 10x3/uL (1.5-8.4); %Basophils 0.8 % (0.0-2.0); %Lymphocytes 38.7 % (18.0-47.0); %Monocytes 10.6 % (0.0-10.0); %Neutrophils 47.1 % (40.0-75.0); Hemoglobin 14.3 g/dL (12.0-15.5); Mean Corpuscular Hemoglobin 31.1 pg (27.0-33.0); Mean Corpuscular Volume 94.1 fl (81.6-98.3); Mean Platelet Volume 10.8 fl (7.4-10.4); Platelet Count 185 10x3/uL (150-450); RBC Distribution Width 12.7 % (11.5-14.5); White Blood Cell (WBC) Count 7.7 10x3/uL (3.5-10.5)
[2021-11-03 11:14] LABS: Anion Gap 13 mmol/L (10-20); BUN (Urea Nitrogen) 13 mg/dL (9.8-20.1); Calc. Creatinine Clearance 0 mL/min (70-130); Calcium 9.8 mg/dL (7.8-10.44); Carbon Dioxide 27 mmol/L (23-31); Chloride 104 mmol/L (98-107); Glucose 85 mg/dL (80-115); Potassium 4.4 mmol/L (3.5-5.1); Sodium 140 mmol/L (136-145)
[2021-11-03 21:26] LABS: SARS-CoV-2 PCR by NAA Not Detected (NotDetected)
== END 2021-11-03 10:06 | disposition home or self-care (01) ==
LOC: LABBT 10:05
PROVIDERS: ATTEND Specialist
DX: Z01.818 Encounter for other preprocedural examination (principal); D05.10 Intraductal carcinoma in situ of unspecified breast; Z20.822 Contact with and (suspected) exposure to COVID-19
CPT/HCPCS: 80048; 85025; 93005; 93010; U0003; U0005

== ENCOUNTER 2021-11-08 05:44 | Day surgery (SDC) | payer BC ==
[2021-11-04 11:54] VITALS: BMI 34.2
[2021-11-08] MEDS ORDERED: Ketorolac Tromethamine 30 MG/ML VIAL ONE ×2 (06:54→08:11)
[2021-11-08] MEDS ORDERED: Acetaminophen 500 MG TAB ONE (06:54)
[2021-11-08] MEDS ORDERED: Lidocaine 1% MPF 2 ML VIAL ONE (08:14)
[2021-11-08] MEDS ORDERED: Bupivacaine 0.25% 10 ML VIAL ONE (08:40)
[2021-11-08] MEDS ORDERED: Lidocaine 1% w/Epinephrine 1:100K 20 ML VIAL ONE (08:40)
[2021-11-08] MEDS ORDERED: fentaNYL Citrate/PF 100 MCG/2 ML SYRINGE ONE (09:11)
[2021-11-08] MEDS ORDERED: Promethazine HCl 25 MG/ML VIAL ONE (09:12)
[2021-11-08] MEDS ORDERED: CEFAZOLIN 2 GM VIAL ONE (09:16)
[2021-11-08] MEDS ORDERED: Sodium Chloride 0.9% 100 ML ONE (09:16)
[2021-11-08] MEDS ORDERED: PHENYLEPHRINE-NS 100 MCG/ML 10 ML SYRINGE ONE (09:27)
[2021-11-08] MEDS ORDERED: PROPOFOL 200 MG/20 ML VIAL ONE (09:27)
[2021-11-08] MEDS ORDERED: Dexamethasone 20 MG/5 ML VIAL ONE (09:27)
[2021-11-08] MEDS ORDERED: Glycopyrrolate 0.2 MG/ML 5 ML SYRINGE ONE (09:27)
[2021-11-08] MEDS ORDERED: Lidocaine 1% PF 5 ML VIAL ONE (09:27)
[2021-11-08] MEDS ORDERED: Ondansetron PF 4 MG/2 ML Vial ONE (09:27)
[2021-11-08] MEDS ORDERED: ePHEDrine 50 MG/ML VIAL ONE (09:27)
[2021-11-08] MEDS ORDERED: HYDROcodone/Acetaminophen 5/325 mg Tablet ONE (11:57)
== END 2021-11-08 12:20 | disposition home or self-care (01) ==
LOC: SDC 05:44
PROVIDERS: ATTEND Specialist
PROC: 0HBU0ZZ Excision of Left Breast, Open Approach (ICD-10-PCS; principal; 2021-11-08)
DX: D05.12 Intraductal carcinoma in situ of left breast (principal); D24.2 Benign neoplasm of left breast; N60.92 Unspecified benign mammary dysplasia of left breast; I10 Essential (primary) hypertension; F17.200 Nicotine dependence, unspecified, uncomplicated; Z79.899 Other long term (current) drug therapy
CPT/HCPCS: 19281; 76098; 88307; 88341; 88342; C1713; J1100; J1885; J2405; J2550; J2704; J3490; S0020

== ENCOUNTER 2022-01-31 04:22 | Emergency (ER) | payer BC ==
[2022-01-31] MEDS ORDERED: Acetaminophen 500 MG TAB ONE (05:22)
== END 2022-01-31 05:25 | disposition home or self-care (01) ==
LOC: ERS 04:22
DX: I10 Essential (primary) hypertension (principal); R51.9 Headache, unspecified; Z79.899 Other long term (current) drug therapy; Z85.3 Personal history of malignant neoplasm of breast
CPT/HCPCS: 71045; 93005

== ENCOUNTER 2022-03-31 23:38 | Emergency (ER) | payer BC ==
[2022-04-01] MEDS ORDERED: Ibuprofen 800 MG TAB ONE (00:34)
[2022-04-01] MEDS ORDERED: HYDROcodone/Acetaminophen 5/325 mg Tablet ONE (02:41)
== END 2022-04-01 03:31 | disposition home or self-care (01) ==
LOC: ERS 23:38
DX: M77.8 Other enthesopathies, not elsewhere classified (principal)

== ENCOUNTER 2022-04-08 20:17 | Emergency (ER) | payer BC | END 2022-04-08 21:10 | disposition home or self-care (01) | LOC: ERS 20:17 | DX: L25.9 Unspecified contact dermatitis, unspecified cause (principal); B02.9 Zoster without complications; I10 Essential (primary) hypertension; Z79.899 Other long term (current) drug therapy | CPT/HCPCS: 99282 ==

== ENCOUNTER 2022-08-18 12:55 | Outpatient (CLI) | payer BC | END 2022-08-18 12:56 | disposition home or self-care (01) | LOC: BICMAMMO 12:55 | PROVIDERS: ATTEND Radiology Radiation Oncology | DX: D05.12 Intraductal carcinoma in situ of left breast (principal) | CPT/HCPCS: 77066; G0279 ==

== ENCOUNTER 2023-01-17 11:13 | Emergency (ER) | payer OTHER, BC ==
[2023-01-17] MEDS ORDERED: Ketorolac Tromethamine 30 MG/ML VIAL ONE (12:10)
[2023-01-17] MEDS ORDERED: HYDROcodone/Acetaminophen 7.5/325 mg Tablet ONE (12:10)
== END 2023-01-17 14:17 | disposition home or self-care (01) ==
LOC: ERS 11:13
DX: S42.134A Nondisplaced fracture of coracoid process, right shoulder, initial encounter for closed fracture (principal); I10 Essential (primary) hypertension; F17.210 Nicotine dependence, cigarettes, uncomplicated; W01.0XXA Fall on same level from slipping, tripping and stumbling without subsequent striking against object, initial encounter; Z79.899 Other long term (current) drug therapy
CPT/HCPCS: 96372; J1885

== ENCOUNTER 2024-06-29 14:28 | Emergency (ER) | payer MEDICARE, OTHER ==
[2024-06-29] MEDS ORDERED: Lidocaine 1% PF 5 ML VIAL ONE (17:47)
[2024-06-29] MEDS ORDERED: Ibuprofen 800 MG TAB ONE (18:38)
== END 2024-06-29 18:48 | disposition home or self-care (01) ==
LOC: ERS 14:28
DX: L02.511 Cutaneous abscess of right hand (principal); L03.011 Cellulitis of right finger; I10 Essential (primary) hypertension; F17.210 Nicotine dependence, cigarettes, uncomplicated; Z79.899 Other long term (current) drug therapy
CPT/HCPCS: 10060; 87070; 87077; 87186; 87205

== ENCOUNTER 2025-03-12 02:59 | Emergency (ER) | payer OTHER ==
[2025-03-12] MEDS ORDERED: diphenhydrAMINE 25 MG CAP ONE (03:50)
[2025-03-12] MEDS ORDERED: Famotidine 20 MG TAB ONE (03:50)
== END 2025-03-12 03:58 | disposition home or self-care (01) ==
LOC: ERS 02:59
DX: L50.9 Urticaria, unspecified (principal); I10 Essential (primary) hypertension; F17.210 Nicotine dependence, cigarettes, uncomplicated
CPT/HCPCS: 99283; J1100